=== PATIENT | female | born 2000 | race Caucasian/White ===

== ENCOUNTER 2022-05-04 16:55 | Emergency (ER) | payer MEDICAID, SELFPAY ==
[2022-05-04 17:01] VITALS: BP 119/79; PULSE 102; RESP 18; TEMP 36.9; O2SAT 100
[2022-05-04 17:40] LABS: Abs Immature Grans 0.02 10^3/uL (0.0-0.06); Absolute Basophil Count 0.03 10^3/uL (0.0-0.2); Absolute Eosinophil Count 0.05 10^3/uL (0.0-0.7); Absolute Monocyte Count 0.56 10^3/uL (0.1-0.8); Absolute Neutrophil Count 5.17 10^3/uL (1.2-6.7); Basophils % 0.4; Eosinophils % 0.7; HCT 36.6 % (36.0-46.0); HGB 11.1 g/dL (11.2-15.7); Immature Grans % 0.3; Lymphocytes % 22.6; MCHC 30.3 % (32.0-36.0); MCV 79 fL (80-95); MPV 10.1 fL (8.0-11.0); Monocytes % 7.4; Neutrophils % 68.6; Platelet Count 279 10^3/uL (130-400); RBC 4.62 10^6/uL (3.93-5.22); RDW 15.8 % (11.7-14.6); RDW-SD 45.2 fL; WBC 7.53 10^3/uL (4.4-10.8)
--- NOTE | 2022-05-04 17:40 | ED.GENADUL_ITS ---
Discharge Plan Disposition Patient Disposition: Home Condition: Stable Discharge Details Clinical Impression: Threatened miscarriage in early Primary Care Provider: Unknown,Unknown ED Provider: Debra Jaime Discharge Instructions Instructions: Threatened Miscarriage (ED) Additional Instructions: Please return within the next 24 hours to have an ultrasound completed. You do need to have repeat blood test of an hCG redrawn in 24 to 48 hours. You are placed on the care management list to assist you in getting follow-up with METHODS ANA[facility]ST DATA PROCESSING women's wellness here at [facility]. Or you may make an appointment with the [employer]NA[employer] DATA [employer]ESS[employer] of your choice. Pelvic rest until cleared by [employer]. Your hCG level was 158, we were unable to find heart tones on the Doppler at bedside. Follow up with primary care provider in 3-5 days. Return to ED sooner if any worsening bleeding, soaking through more than 1 pad an hour, worsening abdominal pain, dizziness lightheadedness, or concerns. Increase oral fluids. Referrals: Eleanor Hartley DO [OSTEOPATHIC DOCTOR] - 3 days Medical Decision Making 22-year-old prima approximately 12 weeks reported presents with vaginal bleeding and bilateral lower abdominal cramping which began last night. She reports spotting began at her PCP appointment yesterday and then increased to like it light. Soaking through less than 1 pad an hour. She reports that she is soaking through 2 pantiliners an hour. She denies any dizziness lightheadedness. She has not had any care. She states that she has had 2 positive home tests and then confirmed by her PCP today. staff writer unable to get heart tones, I did come to the bedside with ultrasound machine I was unable to locate heart tones. CBC, BMP, hCG quant ordered. We will plan to do a pelvic exam. Patient denies any concern for STD denies any vaginal itching or discharge. hCG quant is 158, CBC shows some mild anemia however hemoglobin hematocrit are within normal limits, patient is O-. Pelvic exam performed patient tolerated well, witnessed by Masha FARAH there is bleeding with clots noted steady ooze from the cervical os. No lesions or purulent discharge noted. RhoGAM IM ordered. Will order an ultrasound for the a.m. I did recommend the patient get hCG quant redrawn in 2 to 3 days with her [employer] or PCP. They have not had an appointment for women wellness or [employer] yet. Patient placed on care management list for [employer] follow-up in 2 to 3 days. Patient is to have ultrasound here tomorrow and follow-up in the ER. This text was generated using [employer] system, please disregard any oddities of phrase or misspellings. Lab Data Lab results reviewed: Yes I reviewed the patient's lab results. Labs: Laboratory Tests Range/Units 05/04/22 05/04/22 05/04/22 17:25 17:25 17:25 WBC (4.4-10.8) 10^3/uL 7.53 RBC (3.93-5.22) 10^6/uL 4.62 Hgb (11.2-15.7) g/dL 11.1 L Hct (36.0-46.0) % 36.6 MCV (80-95) fL 79 L MCH (27.0-33.0) pg 24.0 L MCHC (32.0-36.0) % 30.3 L RDW (11.7-14.6) % 15.8 H Plt Count (130-400) 10^3/uL 279 MPV (8.0-11.0) fL 10.1 Immature Gran % 0.3 Neutrophils % 68.6 Lymphocytes % 22.6 Monocytes % 7.4 Eosinophils % 0.7 Basophils % 0.4 Nucleated RBC % (0.0-0.3) % 0.0 Absolute Neutrophils (1.2-6.7) 10^3/uL 5.17 Absolute Lymphocytes (1.2-3.4) 10^3/uL 1.70 Absolute Monocytes (0.1-0.8) 10^3/uL 0.56 Absolute Eosinophils (0.0-0.7) 10^3/uL 0.05 Absolute Basophils (0.0-0.2) 10^3/uL 0.03 Sodium (136-145) mmol/L 139 Potassium (3.5-5.1) mmol/L 3.6 Chloride (98-107) mmol/L 103 Carbon Dioxide (21.0-32.0) mmol/L 27.8 Anion Gap (3-11) mmol/L 8.2 BUN (7-18) mg/dL 10 Creatinine (0.55-1.02) mg/dL 0.7 Est GFR (CKD-EPI 2020) (mL/min/1.73m2) 126.90 Glucose (74-106) mg/dL 95 Calcium (8.5-10.1) mg/dL 9.3 Beta HCG, Quant (1-3) mIU/mL 158 H Patient ABO/Rh O Negative Antibody Screen NEGATIVE Rhogam Unit Number [id number] Unit Expiration Date 11/11/2023 Product Lot # [id number] HPI General Mode of arrival: ambulatory . Date/Time Provider Initiated Documentation: 05/04/22 16:56 . Limitations to Documentation: no limitations . Information obtained by: patient, family, RN notes reviewed and old records reviewed . HPI Narrative: 22-year-old female presents to the ER chief complaint of vaginal bleeding. Patient reports she was seen by her PCP yesterday and had a confirmation of . She reports being approximately 12 weeks . She reports being giving spotting yesterday and has been going through less than 1 pad an hour reports soaking through a panty liner in 2 hours. She has some bilateral lower suprapubic cramping which she describes as like a period. This is her first . She reports stopping her ADHD medication 2 months ago when she suspected she was . Related Data Allergies Allergy/AdvReac Type Severity Reaction Status Date / Time No Known Allergies Allergy Unverified 05/04/22 17:05 General Stated Complaint: [employer] CHANDANA: 3 Review of Systems All systems reviewed & are unremarkable except as noted in HPI and below Genitourinary Genitourinary: Reports as per HPI, Denies difficulty voiding, Denies dysuria and Reports other (Vaginal bleeding) PFSH All Active Problems (Updated 05/04/22 @ 19:40 by Debra Jaime NP) Threatened miscarriage in early (Acute) Social History Smoking/Tobacco Use Status: Current every day Tobacco Type: e-cigarettes Smoking risk assessment performed?: Yes Alcohol Intake: never Substance use type: does not use Do you feel safe at home: Yes Do you feel safe in your relationship?: Yes Exam Narrative Exam Narrative: Constitutional: Alert and oriented x3. Appears stated age. Normal body habitus. Head: Normocephalic, no trauma. Eyes: Pupils PERRL, Red reflex noted, EOM's intact. Eyelids symmetrical without lesions, discharge, or swelling. Chest: RRR, Normal S1, S2, distal pulses intact. Resp: Lungs clear to auscultation bilaterally, no wheezes, rales, or rhonchi. Abdomen: Soft, non-distended, Normoactive bowel sounds all 4 quads. Musculoskeletal: Normal gait, 5/5 strength to all four extremities. Skin: No suspicious rashes or lesions. Capillary refill less than 2 sec. Neurologic: Cranial nerves II-XII intact. Alert and oriented x 3. Hematologic/Lymphatic: No ecchymosis, no lymphadenopathy. External Female Exam: normal external appearance Speculum Exam - Vagina: vaginal bleeding Speculum Exam - Cervix: cervical os open (Slightly with slow ooze noted), normal vervical discharge, no lesions and no masses OB/External & Speculum: cervical os open (Slightly with slow ooze noted) and vaginal bleeding Course Vital Signs Vital signs: Vital Signs Temperature 36.9 C 05/04/22 17:01 Pulse 102 H 05/04/22 17:01 Respiratory Rate 18 05/04/22 17:01 Blood Pressure 119/79 05/04/22 17:01 Pulse Oximetry 100 05/04/22 17:01 Temperature 36.9 C 05/04/22 17:01 Temperature Source Temporal Artery Scan 05/04/22 17:01 Pulse 102 H 05/04/22 17:01 Respiratory Rate 18 05/04/22 17:01 Respiratory Effort Non-Labored 05/04/22 17:03 Blood Pressure 119/79 05/04/22 17:01 Pulse Oximetry 100 05/04/22 17:01 Oxygen Delivery Method Room Air 05/04/22 17:01 Oxygen Flow Rate 0 05/04/22 17:01
[2022-05-04 18:02] LABS: Anion Gap 8.2 mmol/L (3-11); BUN 10 mg/dL (7-18); CO2 27.8 mmol/L (21.0-32.0); CREATININE 0.7 mg/dL (0.55-1.02); Calcium 9.3 mg/dL (8.5-10.1); Chloride 103 mmol/L (98-107); Glucose 95 mg/dL (74-106); HCG Quant, Pregnancy 158 mIU/mL (1-3); Potassium 3.6 mmol/L (3.5-5.1); Sodium 139 mmol/L (136-145)
--- NOTE | 2022-05-04 19:52 | NUR.NOTE ---
faxed over requistion to [facility] ans Patient referral sent to care management aline
== END 2022-05-04 20:15 | disposition home or self-care (01) ==
PROVIDERS: Emergency Provider Registered Nurse Emergency
DX: O20.0 Threatened abortion (principal); Z3A.12 12 weeks gestation of pregnancy
CPT/HCPCS: 36415; 80048; 86850; 86900; 86901; 90384; 96372; 99284; 84702; 85025; J2790

== ENCOUNTER 2022-05-05 19:14 | Emergency (ER) | payer MEDICAID, SELFPAY ==
[2022-05-05] VITALS (8 sets, daily range): BP systolic 102–117; BP diastolic 60–84; PULSE 89–102; RESP 16; TEMP 35.4; O2SAT 97–100
--- NOTE | 2022-05-05 19:20 | ED.GENADUL_ITS ---
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 Patient was seen here yesterday, had blood type O- and was given RhoGAM, had beta-hCG that was 158, work-up otherwise nondiagnostic and there was plan for outpatient ultrasound which unfortunately was not performed today. Abdominal exam tonight is benign. She is mildly tachycardic. Concern for threatened versus incomplete AB versus ectopic . I will recheck beta-hCG. I will give IV fluid bolus and Compazine. -- [id number] transabdominal and transvaginal ultrasound was performed by me with female press technician nurse present. Uterus was identified and no double decidual sign, no yolk sac, no IUP. No free fluid. I called and spoke with on-call lozenge dough mixer, Dr. Gonsales, discussed ED presentation and course, she feels ectopic unlikely but does agree with recheck beta-hCG and plan for close outpatient follow-up. Care signed out to Dr. Cadena plan to follow-up on hCG, reassess patient after IV fluid. HPI General Mode of arrival: ambulatory . Date/Time Provider Initiated Documentation: 05/05/22 19:20 . Limitations to Documentation: no limitations . Information obtained by: patient . HPI Narrative: 22-year-old female at G1, P0 at questionable gestational age, here with chief complaint of abdominal cramping. Patient notes lower abdominal cramping for the past 2 days. Worse today. She has associated vaginal bleeding, 1 pad every few hours. She has passed a few clots but no tissue. Patient was seen here in the emergency department yesterday for abdominal cramping and vaginal bleeding. Patient had beta hCG that was low at 158. Blood type was O- and she did receive RhoGAM. Work-up was otherwise nondiagnostic and she was discharged with plan for outpatient ultrasound today. Unfortunately she could not arrange for transportation for ultrasound today. She does have an ultrasound scheduled for tomorrow. Tonight she has associated nausea and vomiting. Related Data Home Medications Medication Instructions Recorded Confirmed Unknown [No Known Home Meds] 05/05/22 05/05/22 Allergies Allergy/AdvReac Type Severity Reaction Status Date / Time No Known Allergies Allergy Unverified 05/05/22 19:22 General CHANDANA: 3 Review of Systems All systems reviewed & are unremarkable except as noted in HPI and below Constitutional Constitutional: Denies fever(s) Gastrointestinal Gastrointestinal: Reports nausea and Reports vomiting Genitourinary Genitourinary: Reports as per HPI PFSH All Active Problems Threatened miscarriage in early (Acute) Social History Smoking/Tobacco Use Status: Former Tobacco Use Smoking risk assessment performed?: Yes Alcohol Intake: never Substance use type: does not use Do you feel safe at home: Yes Do you feel safe in your relationship?: Yes Exam Const General: cooperative HENMT Head: normocephalic Eyes Conjunctivae: normal conjunctivae Sclera: normal sclerae Neck Neck: trachea midline Resp Auscultation: clear to auscultation bilaterally, no rales, no rhonchi and no w heezes Cardio Rate: tachycardic Rhythm: regular rhythm GI Palpation: soft, not firm, no guarding, no masses, not rigid and nontender Skin General skin exam: pallor Neuro General: patient alert, patient awake and tone normal Extrem General: no edema Psych Appearance: grossly normal Mental Status: mental status grossly normal
[2022-05-05] MEDS: Prochlorperazine 10 MG/2 ML VIAL IVP (19:56)
[2022-05-05] MEDS: Lactated Ringers 500 ML IV (19:56)
[2022-05-05 20:08] LABS: Abs Immature Grans 0.03 10^3/uL (0.0-0.06); Absolute Basophil Count 0.02 10^3/uL (0.0-0.2); Absolute Eosinophil Count 0.05 10^3/uL (0.0-0.7); Absolute Lymphocyte Count 1.38 10^3/uL (1.2-3.4); Absolute Monocyte Count 0.48 10^3/uL (0.1-0.8); Absolute Neutrophil Count 6.38 10^3/uL (1.2-6.7); Basophils % 0.2; Eosinophils % 0.6; HCT 35.8 % (36.0-46.0); HGB 10.9 g/dL (11.2-15.7); Immature Grans % 0.4; Lymphocytes % 16.5; MCH 24.1 pg (27.0-33.0); MCHC 30.4 % (32.0-36.0); MCV 79 fL (80-95); MPV 10.5 fL (8.0-11.0); Monocytes % 5.8; Neutrophils % 76.5; Platelet Count 266 10^3/uL (130-400); RBC 4.52 10^6/uL (3.93-5.22); RDW 15.9 % (11.7-14.6); RDW-SD 45.2 fL; WBC 8.34 10^3/uL (4.4-10.8)
[2022-05-05 20:45] LABS: ALT 22 U/L (14-59); AST 24 U/L (15-37); Albumin 3.8 g/dL (3.4-5.0); Alkaline Phosphatase 86 U/L (46-116); Anion Gap 9.4 mmol/L (3-11); BUN 8 mg/dL (7-18); Bilirubin, Total 0.3 mg/dL (0.2-1.0); CO2 24.6 mmol/L (21.0-32.0); CREATININE 0.7 mg/dL (0.55-1.02); Calcium 9.1 mg/dL (8.5-10.1); Chloride 108 mmol/L (98-107); Glucose 99 mg/dL (74-106); Potassium 3.6 mmol/L (3.5-5.1); Sodium 142 mmol/L (136-145)
[2022-05-05 21:02] LABS: HCG Quant, Pregnancy 109 mIU/mL (1-3)
--- NOTE | 2022-05-05 22:08 | NUR.NOTE ---
Nursing Note: Report given to Bo FARAH
--- NOTE | 2022-05-05 22:10 | ED.PROG_ITS ---
Date of service: 05/05/22 Time of Service: 22:15 Medical Decision Making Patient was signed out to me by my colleague Dr. Shabbir Henriquez. Please refer to his HPI, physical exam, assessment and plan. At time of signout we are awaiting repeat hCG level and reassessment. On reassessment patient is feeling much bet ter. Pain resolved. She is tolerating p.o. well. Heart rate normalized. No signs of shock. Hemoglobin relatively stable. hCG is demonstrating a decline, hCG is now 109. Symptoms appear consistent with miscarriage and less likely ectopic . She is scheduled for outpatient ultrasound tomorrow. The case has been reviewed with obstetrics, and Dr. Martinez recommends close follow-up. Patient feels well and is stable for discharge. Symptoms inconsistent with an acute surgical abdomen, or ruptured ectopic. I have extensively reviewed the treatment plan and discharge instructions with the patient and their family. I have addressed all patient concerns at this time. The patient and family was made aware of what symptoms to monitor for that would warrant a return to the emergency department. Discussed the plan with the patient and family, they demonstrate verbal understanding and agreement with our assessment and plan at this time. The documentation in this chart was dictated using [employer] dictation software. Please excuse any dictation errors. Sign Out Sign Out Data: Sign Out Comment: followup hcg, reassess patient post ivf, consider discharge with close outpatient followup. Last updated by Shabbir Henriquez MD at 05/05/22 20:21 Discharge Plan Disposition Patient Disposition: Home Condition: Improving Discharge Details Clinical Impression: Incomplete miscarriage Primary Care Provider: Unknown,Unknown ED Provider: Nba Cadena Home Meds and New Rx's Prescriptions: No Action No Known Home Meds Discharge Instructions Instructions: Miscarriage (ED) Additional Instructions: At this time your beta-hCG levels are decreasing, which points more strongly to a miscarriage. However it is still vitally important that you follow-up closely tomorrow for your ultrasound and OB appointments. Please drink plenty of fluid. Take Tylenol and Motrin as needed for pain. If you notice any worsening of your symptoms, or any new symptoms such as vomiting, diarrhea, fever, chills, shortness of breath, chest pain, numbness, weakness, or fainting , please return immediately to the emergency department for reevaluation. Please follow up with your primary care provider as soon as possible for reassessment and reevaluation. As always, it was a pleasure participating in your medical care today. Referrals: Saumya Brannon MD [ [facility] STAFF PHYSICIAN] -
--- NOTE | 2022-05-05 22:31 | NUR.NOTE ---
Nursing Note: Pt out of ER ambulatory with discharge papers.
== END 2022-05-05 22:38 | disposition home or self-care (01) ==
PROVIDERS: Student in an Organized Health Care Education/Training Program; Emergency Provider Student in an Organized Health Care Education/Training Program
DX: O03.4 Incomplete spontaneous abortion without complication (principal)
CPT/HCPCS: 36415; 80053; 96361; 96374; 99284; 84702; 85025; J0780

== ENCOUNTER 2022-05-11 02:44 | Outpatient (CLI) | payer MEDICAID, SELFPAY ==
--- NOTE | 2022-05-11 | DI.US_ITS ---
Exam(s) US OB 1ST TRIMESTER EXAM: US OB 1ST TRIMESTER CLINICAL HISTORY: VAGINAL BLEEDING, FIRST TRIMESTER, F/U IN ED. TECHNIQUE: Transabdominal and transvaginal pelvic ultrasound was performed using standard protocol. COMPARISON: No exams were available for comparison FINDINGS: UTERUS: Position: Anteverted. Size: 6 long by 3.1 AP by 4.4 transverse cm Endometrium: 0.1 cm. Normal for patient's menstrual status. No intrauterine gestation sac is identifi ed. Myometrium: Unremarkable. Cervix: Unremarkable. OVARIES: No suspicious adnexal masses are seen sonographically. Right: 3.5 x 1.8 x 3.1 cm Cyst or mass: No suspicious cystic or solid masses. Left: 2.9 x 1.8 x 2.8 cm Cyst or mass: No suspicious cystic or solid masses. DOPPLER: Color: Symmetric and uniform flow to both ovaries. CUL-DE-SAC: Free fluid: There is a small amount of free fluid in the pelvis. Other: None. IMPRESSION: 1. Normal-appearing uterus with endometrial stripe within normal limits. 2. Unremarkable bilateral ovaries. 3. No evidence of an intrauterine gestational sac or adnexal mass. 4. Findings were discussed with the emergency department at 1:10 p.m. on 05/11/2022. DATA REPOSITORY:
== END 2022-05-11 03:04 ==
LOC: DI 02:44
PROVIDERS: Visit Provider Registered Nurse Emergency
DX: O20.9 Hemorrhage in early pregnancy, unspecified (principal)
CPT/HCPCS: 76801

== ENCOUNTER 2022-05-11 13:07 | Emergency (ER) | payer MEDICAID, SELFPAY ==
[2022-05-11 13:15] VITALS: BP 113/63; PULSE 86; RESP 16; TEMP 36.3; O2SAT 99
--- NOTE | 2022-05-11 13:24 | ED.GENADUL_ITS ---
Discharge Plan Disposition Patient Disposition: Home Condition: Stable Discharge Details Chief Complaint: Recheck Clinical Impression: Miscarriage Primary Care Provider: Unknown,Unknown ED Provider: Shade Truong Home Meds and New Rx's Prescriptions: No Action No Known Home Meds Discharge Instructions Instructions: Miscarriage (ED) Additional Instructions: follow up with your primary care provider as needed if you have severe abdominal pain or fevers return to the emergency department Medical Decision Making 22 yo female who comes in for ultrasoud results. She was seen last week for vaginal bleeding and was approximately 12 weeks . She states she has not had any more bleeding and has no abdominal pain or cramping, feels well. Her u/s shows no evidence of so suspect she had a complete miscarriage. Given lack of symptoms do not feel other testing indicated, she will follow up with her provider as needed Differential Diagnosis Differential Diagnosis: miscarriage HPI General Mode of arrival: ambulatory . Date/Time Provider Initiated Documentation: 05/11/22 13:08 . Limitations to Documentation: no limitations . Information obtained by: patient . History of Present Illness 22 year old F presents to the emergency department with the chief complaint of here for ultrasound results, Patient started experiencing this day(s) (6) and it has been constant. No relieving factors improve symptom(s), No exacerbating fac tors reported . Patient notes no other symptoms.. Patient did receive the following treatments prior to arrival, none Related Data Home Medications Medication Instructions Recorded Confirmed Unknown [No Known Home Meds] 05/05/22 05/05/22 Allergies Allergy/AdvReac Type Severity Reaction Status Date / Time No Known Allergies Allergy Unverified 05/05/22 19:22 General Stated Complaint: Recheck CHANDANA: 4 Review of Systems All systems reviewed & are unremarkable except as noted in HPI and below Constitutional Constitutional: Denies chills, Denies fever(s) and Denies weakness Cardiovascular Cardiovascular: Denies chest pain and Denies dyspnea Respiratory Respiratory: Denies cough and Denies dyspnea Gastrointestinal Gastrointestinal: Denies abdominal pain, Denies nausea and Denies vomiting Genitourinary Genitourinary: Denies dysuria Musculoskeletal Musculoskeletal: Denies joint swelling Integumentary/Breasts Skin/Breast: Denies rash Neurologic Neurologic: Denies weakness [facility] All Active Problems (Updated 05/11/22 @ 13:27 by Shade Truong MD) Threatened miscarriage in early (Acute) Incomplete miscarriage (Acute) Miscarriage (Acute) Social History Smoking/Tobacco Use Status: Former Tobacco Use Smoking risk assessment performed?: Yes Alcohol Intake: never Drug use: Never Substance use type: does not use Do you feel safe at home: Yes Do you feel safe in your relationship?: Yes Exam Const General: no acute distress Orientation: alert HENMT Head: normal to inspection Ears: external ears normal General nose exam: external nose normal Mouth: moist mucous membranes Eyes General: appearance normal, both eyes and all related structures Neck Neck: normal visual inspection Resp Effort & Inspection: normal respiratory effort and able to speak in complete sentences Cardio Rate: regular rate GI Palpation: soft and nontender Skin General skin exam: no rashes or lesions noted Neuro General: patient alert and patient oriented x3 Extrem General: normal to inspection Psych Mental Status: mental status grossly normal Course Vital Signs Vital signs: Vital Signs Temperature 36.3 C L 05/11/22 13:15 Pulse 86 05/11/22 13:15 Respiratory Rate 16 05/11/22 13:15 Blood Pressure 113/63 05/11/22 13:15 Pulse Oximetry 99 05/11/22 13:15 Temperature 36.3 C L 05/11/22 13:15 Temperature Source Tympanic 05/11/22 13:15 Pulse 86 05/11/22 13:15 Respiratory Rate 16 05/11/22 13:15 Respiratory Effort 05/11/22 13:16 Blood Pressure 113/63 05/11/22 13:15 Blood Pressure Position Sitting 05/11/22 13:15 Pulse Oximetry 99 05/11/22 13:15 Oxygen Delivery Method Room Air 05/11/22 13:15 Oxygen Flow Rate 0 05/11/22 13:15 Pain Level 0 05/11/22 13:15
== END 2022-05-11 13:30 | disposition home or self-care (01) ==
PROVIDERS: Emergency Provider Emergency Medicine
DX: O03.9 Complete or unspecified spontaneous abortion without complication (principal)

== ENCOUNTER 2022-07-19 20:51 | Emergency (ER) | payer MEDICAID, SELFPAY ==
[2022-07-19 20:57] VITALS: BP 113/72; PULSE 99; RESP 17; TEMP 36.8; O2SAT 99
--- NOTE | 2022-07-19 21:12 | ED.GENADUL_ITS ---
Discharge Plan Disposition Patient Disposition: Home Discharge Details Clinical Impression: Arthralgia of ankle Primary Care Provider: Unknown,Unknown ED Provider: Debra Jaime Home Meds and New Rx's Prescriptions: No Action No Known Home Meds Discharge Instructions Instructions: Leg Pain (ED) Additional Instructions: Please try diclofenac cream which she can get [id number] the other name for this is Voltaren cream. Please take Tylenol or Ibuprofen with food every 4- 6 hours as needed for pain and swelling. Rest ice compression elevation Follow up with primary care provider in 3-5 days. Return to ED sooner if any worsening or concerns. Increase oral fluids. You are placed on a care management list to help you establish primary care provider Stand Alone Forms: Work Release Discharge Data Discharge Date/Time-TO BE ENTERED AT DEPARTURE: 07/19/22 21:27 HPI General Mode of arrival: ambulatory . Date/Time Provider Initiated Documentation: 07/19/22 20:51 . Limitations to Documentation: no limitations . Information obtained by: patient, RN notes reviewed and old records reviewed . HPI Narrative: 22-year-old female presents to the ER with chief complaint of bilateral ankle pain which has been ongoing for weeks. She reports she does have a history of tendinitis. No new injuries noted no swelling. She has been taking Tylenol prior to going to sleep. No signs of infection erythema or swelling. No other associated symptoms or complaints. Denies any other joint pain or swelling. Related Data Home Medications Medication Instructions Recorded Confirmed Unknown [No Known Home Meds] 05/05/22 05/05/22 Allergies Allergy/AdvReac Type Severity Reaction Status Date / Time No Known Allergies Allergy Unverified 05/05/22 19:22 General Stated Complaint: Orthopedic CHANDANA: 4 Review of Systems All systems reviewed & are unremarkable except as noted in HPI and below Musculoskeletal Musculoskeletal: Reports as per HPI and Reports arthralgias PFSH All Active Problems (Updated 07/19/22 @ 21:15 by Debra Jaime NP) Arthralgia of ankle (Acute) Social History Smoking/Tobacco Use Status: Former Tobacco Use Smoking risk assessment performed?: Yes Alcohol Intake: never Drug use: Never Substance use type: does not use Do you feel safe at home: Yes Do you feel safe in your relationship?: Yes Exam Narrative Exam Narrative: Constitutional: Alert and oriented x3. Appears stated age. Normal body habitus. Head: Normocephalic, no trauma. Eyes: Pupils PERRL, Red reflex noted, EOM's intact. Eyelids symmetrical without lesions, discharge, or swelling. ENT: Bilateral TM's WNL, External ear normal to inspection, no mastoid TTP, swelling, or erythema, Nasal turbinates WNL, no nasal discharge. Normal dentition, Posterior pharynx WNL, no exudate. Chest: RRR, Normal S1, S2, distal pulses intact. Resp: Lungs clear to auscultation bilaterally, no wheezes, rales, or rhonchi. Abdomen: Soft, non-distended, Normoactive bowel sounds all 4 quads. Musculoskeletal: Normal gait, 5/5 strength to all four extremities. Skin: No suspicious rashes or lesions. Capillary refill less than 2 sec. Neurologic: Cranial nerves II-XII intact. Alert and oriented x 3. Motor: No deficits noted. Sensory: Intact bilaterally all 4 extremities. Reflexes: DTR's intact bilaterally.. Hematologic/Lymphatic: No ecchymosis, no lymphadenopathy. Extrem Right lower extremity: normal to inspection, full ROM and ankle Details: normal to inspection, tenderness and no edema Left lower extremity: normal to inspection, full ROM and ankle Details: normal to inspection, tenderness and no edema Course Vital Signs Vital signs: Vital Signs Temperature 36.8 C 07/19/22 20:57 Pulse 99 H 07/19/22 20:57 Respiratory Rate 17 07/19/22 20:57 Blood Pressure 113/72 07/19/22 20:57 Pulse Oximetry 99 07/19/22 20:57 Temperature 36.8 C 07/19/22 20:57 Temperature Source Temporal Artery Scan 07/19/22 20:57 Pulse 99 H 07/19/22 20:57 Respiratory Rate 17 07/19/22 20:57 Respiratory Effort Normal 07/19/22 21:00 Blood Pressure 113/72 07/19/22 20:57 Blood Pressure Position Sitting 07/19/22 20:57 Pulse Oximetry 99 07/19/22 20:57 Oxygen Delivery Method Room Air 07/19/22 20:57 Oxygen Flow Rate 0 07/19/22 20:57 Pain Level 3 07/19/22 20:57 Comment Patient states pain in bilateral ankles when ambulating is sharp, stabbing, and like someone is trying to cut them off. 07/19/22 20:57
--- NOTE | 2022-07-19 21:32 | NUR.NOTE ---
Referral to Care Management to establish pcp routinely.Nursing Note:
== END 2022-07-19 21:27 | disposition home or self-care (01) ==
PROVIDERS: Emergency Provider Registered Nurse Emergency
DX: M25.571 Pain in right ankle and joints of right foot (principal); M25.572 Pain in left ankle and joints of left foot
CPT/HCPCS: 99281; 99282

== ENCOUNTER 2022-10-10 11:06 | Emergency (ER) | payer MEDICAID, SELFPAY ==
[2022-10-10 11:07] VITALS: BP 122/70; PULSE 118; RESP 16; TEMP 36.7; O2SAT 98
--- NOTE | 2022-10-10 11:15 | DI.US_ITS ---
Exam(s) US TRANSVAGINAL EXAM: US TRANSVAGINAL CLINICAL HISTORY: V,, belly pain, 8 wks TECHNIQUE: Ultrasound of the pelvis was performed both transabdominal and transvaginal. COMPARISON: US US OB 1ST TRIMESTER from 05/11/2022 FINDINGS: UTERUS: There is an intrauterine gestational sac which contains a 3-4 mm diameter yolk sac and a viab le pole with heart rate recorded at 113 BPM. [place]-rump length measures 8 mm, correspond to 6 weeks and 5 days gestational age. There are no uterine fibroids.No evidence of obvious subchronic hemorrhage. RIGHT OVARY: Measures 3 x 1.7 x 2.0 cm No significant cysts nor masses evident in the right ovary. LEFT OVARY: Measures 3 x 2.5 x 2.4 cm Contains a cyst measuring 2 x 1.7 x 1.8 cm, possibly corpus luteal. CUL-DE-SAC: Small amount of free fluid in the right adnexa is the region of the radial ovary. IMPRESSION: 1. Single viable intrauterine gestation which is approximately 6 weeks and 5 days gestational age by crown-rump length measurement. 2. There is a 2 cm cyst in the left ovary, probably corpus luteal. 3. Small amount of free fluid noted in the right adnexal region. DATA REPOSITORY:
[2022-10-10] MEDS: Normal Saline 1,000 ML 1000 ML IV (11:45)
[2022-10-10] MEDS: Ondansetron 4 MG/2 ML VIAL 8 MG IVP (11:45)
[2022-10-10 11:55] LABS: HCT 37.5 % (36.0-46.0); MCV 81 fL (80-95); MPV 9.7 fL (8.0-11.0); Platelet Count 257 10^3/uL (130-400); RBC 4.61 10^6/uL (3.93-5.22); RDW 14.2 % (11.7-14.6); RDW-SD 41.8 fL; WBC 12.01 10^3/uL (4.4-10.8)
[2022-10-10 12:10] LABS: ALT 19 U/L (14-59); AST 19 U/L (15-37); Albumin 4.5 g/dL (3.4-5.0); Alkaline Phosphatase 92 U/L (46-116); BUN 6 mg/dL (7-18); Bilirubin, Total 0.6 mg/dL (0.2-1.0); CREATININE 0.6 mg/dL (0.55-1.02); Calcium 9.4 mg/dL (8.5-10.1); Chloride 100 mmol/L (98-107); Glucose 85 mg/dL (74-106); Lipase 15 U/L (16-77); Potassium 3.7 mmol/L (3.5-5.1); Sodium 137 mmol/L (136-145); Total Protein 8.4 g/dL (6.4-8.2)
--- NOTE | 2022-10-10 12:25 | ED.GENADUL_ITS ---
Discharge Plan Disposition Patient Disposition: Home Discharge Details Clinical Impression: Vomiting, Primary Care Provider: None,None ED Provider: Sasha August Home Meds and New Rx's Prescriptions: No Action No Known Home Meds Discharge Instructions Instructions: (ED), Acute Nausea and Vomiting (ED) Additional Instructions: Zofran every 8 hours under tongue as needed for nausea and vomiting. Keep your appointment with DIRECTOR OF ENTERPRISE ARCHITECTURE this week. Let them know that you had an ultrasound in the emergency department today. This showed an intrauterine with heart rate of 113. There was a left corpus luteum cyst as well as a small amount of free fluid. Follow-up with economic connections and community connections as instructed for assistance with housing. Take a multivitamin a day. Medical Decision Making Care management came down to see the patient but she was already hooked up with services. Patient is supposed to see OB this week and get an ultrasound. She said she does not think she needs to go now. I told her that she did need to get established with DIRECTOR OF ENTER[employer] ARCHIT[employer] in spite of the fact that she had had an ultrasound in the ER today. She is completely nontoxic while in the department playing on her iPhone and drinking her sports beverage. DC from the department. Medical Records Medical records reviewed: Yes I reviewed the patient's medical records. Imaging Data Radiologic Study: Imaging: Ultrasound Radiologist's impression: Case discussed with radiologist who told me that the patient has an intrauterine with a heart rate of 113 as well as a corpus luteal cyst and small amount of free fluid. Lab Data Lab results reviewed: Yes I reviewed the patient's lab results. Lab results narrative: Blood cell count is 12,000 and the rest of the labs are pretty unremarkable. HPI General Date/Time Provider Initiated Documentation: 10/10/22 11:16 . HPI Narrative: This 22-year-old female patient presents with a chief complaint of nausea and vomiting. The patient is 2 para 1 at about 8 weeks gestation. She did have a miscarriage in May. She is homeless and sleeping in a tent with her boyfriend and dog. She has had no nausea or vomiting with either of the pregnancies. She did not feel well last night and this morning vomited a couple of times. Since then she has been able to take sports drinks without difficulty. She does tell me she still nauseous in the ED. She says her belly is a little bit sore from the vomiting. She also has a sunburn on her back and was concerned about sun poisoning. I reassured her regarding this. Had no vaginal bleeding or discharge. There is no fever, chills, localized belly pain, diarrhea, or dysuria. There is no radiating pain. The vomiting was mild. Related Data Home Medications Medication Instructions Recorded Confirmed Unknown [No Known Home Meds] 05/05/22 10/10/22 Allergies Allergy/AdvReac Type Severity Reaction Status Date / Time No Known Allergies Allergy Unverified 05/05/22 19:22 General Stated Complaint: Nausea/Vomit/Diar CHANDANA: 3 Review of Systems Constitutional Constitutional: Denies chills, Denies fever(s), Denies headache(s) and Denies weakness Eyes Eyes: Denies diplopia and Reports other (no redness) ENT Ears, Nose, Mouth, and Throat: Denies otalgia, Denies headache(s), Denies nasal congestion, Denies nasal discharge, Denies neck pain and Denies sore throat Cardiovascular Cardiovascular: Denies chest pain, Denies palpitations and Denies dyspnea Respiratory Respiratory: Denies cough and Denies dyspnea Gastrointestinal Gastrointestinal: Reports abdominal pain (Vague soreness), Denies diarrhea, Reports nausea and Reports vomiting Genitourinary Genitourinary: Denies dysuria Musculoskeletal Musculoskeletal: Denies myalgias, Denies muscle weakness, Denies neck pain, Denies numbness and Reports other (edema) Integumentary/Breasts Skin/Breast: Denies change in pigmentation, Denies rash and Reports other (Has lower back redness from the sun) Neurologic Neurologic: Denies headache(s), Denies numbness and Denies weakness Endocrine Endocrine: Denies palpitations PFSH All Active Problems Vomiting (Acute) (Acute) Social History Smoking/Tobacco Use Status: Current-Occasional Tobacco Type: e-cigarettes Smoking risk assessment performed?: Yes Alcohol Intake: never Drug use: Never Substance use type: does not use Housing: homeless Do you feel safe at home: Yes Do you feel safe in your relationship?: Yes Exam Const General: no acute distress, well developed, well groomed and not in acute distress Nutritional Appearance: well nourished Orientation: alert and oriented x3 HENAR Head: normocephalic and atraumatic Ears: external ears normal Mouth: oropharynx normal and moist mucous membranes Throat: posterior oropharynx normal Eyes Conjunctivae: conjunctivae normal Neck Neck: full ROM and supple Chest Chest: normal inspection of the chest Resp Effort & Inspection: normal respiratory effort Auscultation: clear to auscultation bilaterally Cardio Rate: regular rate Rhythm: regular rhythm Heart Sounds: no murmurs and no rubs GI Inspection: normal to inspection Palpation: soft, nontender and other (non distended) Auscultation: normal bowel sounds Skin General skin exam: no rashes or lesions noted and other (pink, warm, dry; first- degree sunburn lower back) Neuro General: patient alert, patient awake and patient oriented x3 Speech: speech normal Motor: other (KEYES) Sensory Exam: no sensory deficits noted Extrem General: normal to inspection, full ROM and pedal edema present Psych Mental Status: mental status grossly normal Speech and Movement: speech and movement normal Affect: normal affect Course Vital Signs Vital signs: Vital Signs Temperature 36.7 C 10/10/22 11:07 Pulse 118 H 10/10/22 11:07 Respiratory Rate 16 10/10/22 11:07 Blood Pressure 122/70 10/10/22 11:07 Pulse Oximetry 98 10/10/22 11:07 Temperature 36.7 C 10/10/22 11:07 Temperature Source Skin 10/10/22 11:07 Pulse 118 H 10/10/22 11:07 Respiratory Rate 16 10/10/22 11:07 Respiratory Effort Normal 10/10/22 11:52 Blood Pressure 122/70 10/10/22 11:07 Blood Pressure Position Sitting 10/10/22 11:07 Pulse Oximetry 98 10/10/22 11:07 Oxygen Delivery Method Room Air 10/10/22 11:07 Oxygen Flow Rate 0 10/10/22 11:07 Pain Level 4 10/10/22 11:07 Lab/Test Results Lab/Test Results: Laboratory Tests Range/Units 10/10/22 10/10/22 10/10/22 11:45 11:45 11:45 WBC (4.4-10.8) 10^3/uL 12.01 H RBC (3.93-5.22) 10^6/uL 4.61 Hgb (11.2-15.7) g/dL 12.0 Hct (36.0-46.0) % 37.5 MCV (80-95) fL 81 MCH (27.0-33.0) pg 26.0 L MCHC (32.0-36.0) % 32.0 RDW (11.7-14.6) % 14.2 Plt Count (130-400) 10^3/uL 257 MPV (8.0-11.0) fL 9.7 Sodium (136-145) mmol/L 137 Potassium (3.5-5.1) mmol/L 3.7 Chloride (98-107) mmol/L 100 Carbon Dioxide (21.0-32.0) mmol/L 23.0 Anion Gap (3-11) mmol/L 14.0 H BUN (7-18) mg/dL 6 L Creatinine (0.55-1.02) mg/dL 0.6 Est GFR (CKD-EPI 2020) (mL/min/1.73m2) 131.70 Glucose (74-106) mg/dL 85 Calcium (8.5-10.1) mg/dL 9.4 Total Bilirubin (0.2-1.0) mg/dL 0.6 AST (15-37) U/L 19 ALT (14-59) U/L 19 Alkaline Phosphatase (46-116) U/L 92 Total Protein (6.4-8.2) g/dL 8.4 H Albumin (3.4-5.0) g/dL 4.5 Lipase (16-77) U/L 15 L Cancelled
[2022-10-10 14:14] VITALS: BP 119/59; PULSE 91; RESP 15; TEMP 36.8; O2SAT 100
--- NOTE | 2022-10-10 14:48 | CMPROGNOTE_ITS ---
Date of service: 10/10/22 Time of Service: 14:48 Care Management Progress Note Progress Note Text Progress Note Text: CM asked by ED provider to meet with Dannielle. She is 2 months and living in a tent with her boyfriend. Dannielle shared that she has only been living in the tent for about a week. Prior to that they had an apartment in [facility] that they shared with a roommate. She stated they were not getting along with the roommate so they left. It is unclear whose apartment it actually was. Dannielle nor her boyfriend are currently employed and have no income. Dannielle informed CM that she has been trying to reach [employer] regarding housing. CM explained that this time of year, post Covid, housing in a motel is generally no longer an option. There are a few exceptions and Dannielle wanted to see if early was a condition that might qualify her. CM suggested that she present in person rather than via phone as there is often a long wait time on the phone. CM also provided Dannielle with a brochure for [employer] and encouraged her to contact them regarding other resources such as food and transportation.
== END 2022-10-10 14:22 | disposition home or self-care (01) ==
PROVIDERS: Emergency Provider Emergency Medicine
DX: O21.0 Mild hyperemesis gravidarum (principal); O34.81 Maternal care for other abnormalities of pelvic organs, first trimester; N83.12 Corpus luteum cyst of left ovary; Z59.00 Homelessness unspecified
CPT/HCPCS: 36415; 80053; 81025; 83690; 85027; 96360; 96374; 99284; 76830; J2405; J3490

== ENCOUNTER 2022-11-16 15:32 | Outpatient (REF) | payer MEDICAID, SELFPAY ==
[2022-11-16 18:47] LABS: *AMPHETAMINES SCREEN URINE Negative (Negative); *BARBITURATES SCREEN URINE Negative (Negative); *BENZODIAZEPINES SCREEN URINE Negative (Negative); Cannabinoids THC Negative (Negative); Cocaine Screen,Urine Positive (Negative); METHADONE URINE SCREEN Negative (Negative); OPIATES URINE SCREEN Negative (Negative); Tricyclic Antidepressants Negative (Negative)
[2022-11-18 14:02] LABS: Chlamydia Result Negative (Negative); GC Result Negative (Negative)
[2022-11-24 11:47] LABS: Buprenorphine Negative ng/mL (Cutoff: 5.0); Norbuprenorphine Negative ng/mL (Cutoff: 2.5)
== END 2022-11-16 15:33 | disposition home or self-care (01) ==
LOC: LBN 15:32
PROVIDERS: Visit Provider Advanced Practice Midwife
DX: O26.891 Other specified pregnancy related conditions, first trimester (principal); N89.8 Other specified noninflammatory disorders of vagina; Z11.3 Encounter for screening for infections with a predominantly sexual mode of transmission; Z3A.11 11 weeks gestation of pregnancy
CPT/HCPCS: 80307; 80348; 87491; 87591; 87086; 87480; 87510; 87660

== ENCOUNTER 2022-11-16 16:21 | Outpatient (CLI) | payer MEDICAID, SELFPAY ==
[2022-11-16 17:33] LABS: TSH (W/Ref FT4) 1.03 uIU/mL (0.36-3.74)
[2022-11-16 22:16] LABS: Panorama Kit Sent via Fed Ex
[2022-11-17 09:24] LABS: Rubella IgG Ab (UVM) Positive (See Note); Varicella IgG Antibody Positive (See Note)
[2022-11-17 09:42] LABS: Hepatitis C Ab w Rflx HCV PCR Negative (Negative)
[2022-11-17 10:06] LABS: HIV-1/2 Ag & Ab Screen Negative (Negative)
[2022-11-17 14:19] LABS: Hepatitis B Surface Ag Negative (Negative)
[2022-11-18 15:38] LABS: Syphilis IgG w/Reflex Nonreactive (Nonreactive)
[2022-11-26 00:51] LABS: Result Summary NEGATIVE; Specimen WB Whole Blood
== END 2022-11-16 16:22 | disposition home or self-care (01) ==
LOC: LBO 16:21
PROVIDERS: Visit Provider Advanced Practice Midwife
DX: Z3A.11 11 weeks gestation of pregnancy; O26.891 Other specified pregnancy related conditions, first trimester; N89.8 Other specified noninflammatory disorders of vagina; Z36.89 Encounter for other specified antenatal screening
CPT/HCPCS: 36415; 81220; 81222; 86787; 86803; 86850; 86900; 86901; 87340; 87389; 84443; 86762; 86780

== ENCOUNTER 2022-12-21 16:47 | Outpatient (CLI) | payer MEDICAID, SELFPAY ==
[2022-12-26 12:16] LABS: AFP 48.5 ng/mL; GA used in risk estimate Scan estimate; IVF Pregnancy No; Initial or repeat testing Initial testing; Insulin dependent diabetes No; Maternal Weight 178 lbs; Number of Fetuses 1; Prev Pregnancy w/NTD No; RECOMMENDED FOLLOW UP None.; Results Summary Normal risk
== END 2022-12-21 16:48 | disposition home or self-care (01) ==
LOC: LBO 16:48
PROVIDERS: Visit Provider Obstetrics & Gynecology Gynecology
DX: Z34.92 Encounter for supervision of normal pregnancy, unspecified, second trimester (principal); Z3A.16 16 weeks gestation of pregnancy
CPT/HCPCS: 36415; 82105

== ENCOUNTER → 2023-01-16 01:57 | Outpatient (CLI) | payer MEDICAID, SELFPAY ==
--- NOTE | 2023-01-16 08:15 | DI.US_ITS ---
Exam(s) US OB 2-3 TRIMESTER EXAM: US OB 2-3 TRIMESTER CLINICAL HISTORY: ,z34.90. TECHNIQUE: Transabdominal obstetrical ultrasound performed. COMPARISON: US US OB 1ST TRIMESTER from 05/11/2022 FINDINGS: Number of fetuses: 1 position: Cephalic. heart rate: 152bpm Placental location: There is a grade 1 posterior placenta. The placental tip is 3.9 cm from the inte rnal os. No evidence of previa. Amniotic fluid index: Amount of fluid is within normal limits. ANATOMICAL SURVEY: Within normal limits. BIOMETRIC DATA: BPD: 5.02cm, 21weeks 1day HC: 18.09cm, 20weeks 4days AC: 15.29cm, 20weeks 3days FL: 3.37cm, 20weeks 4days Cisterna magna: 4.4mm Cerebellum: 2.26cm Lat ventricle: 5.4 mm. EFW: 361.39g, 0.81lb, 52.2% Composite Age: 20weeks 5days LESLIE: 05/31/2023 Heart Rate: 152bpm ANATOMICAL SURVEY: Four-chambered heart: Unremarkable. RVOT: Unremarkable. LVOT: Unremarkable. Left-sided stomach: Unremarkable. urinary bladder: Unremarkable. Bilateral kidneys: Unremarkable. Three-vessel cord: Unremarkable. Cord insertion: Unremarkable. Posterior fossa: Unremarkable. ventricles: Unremarkable. nose/lips: Unremarkable. Palate: Unremarkable. spine: Unremarkable. Two arms and two legs: Unremarkable. Diaphragm: Unremarkable. IMPRESSION: 1. Single live intrauterine gestation as above. 2. Normal anatomic survey. DATA REPOSITORY:
== END ==
PROVIDERS: Visit Provider Advanced Practice Midwife
DX: Z34.92 Encounter for supervision of normal pregnancy, unspecified, second trimester (principal)
CPT/HCPCS: 76805

== ENCOUNTER 2023-01-16 14:11 | Outpatient (REF) | payer MEDICAID, SELFPAY ==
[2023-01-16 18:24] LABS: *AMPHETAMINES SCREEN URINE Negative (Negative); *BARBITURATES SCREEN URINE Negative (Negative); *BENZODIAZEPINES SCREEN URINE Negative (Negative); Cannabinoids THC Negative (Negative); Cocaine Screen,Urine Negative (Negative); METHADONE URINE SCREEN Negative (Negative); OPIATES URINE SCREEN Negative (Negative)
[2023-01-16 18:25] LABS: Tricyclic Antidepressants Negative (Negative)
[2023-02-01 13:05] LABS: Buprenorphine Negative ng/mL (Cutoff: 5.0); Norbuprenorphine Negative ng/mL (Cutoff: 2.5)
== END 2023-01-16 14:12 | disposition home or self-care (01) ==
LOC: LBN 14:11
PROVIDERS: Visit Provider Advanced Practice Midwife
DX: R82.5 Elevated urine levels of drugs, medicaments and biological substances (principal); Z34.92 Encounter for supervision of normal pregnancy, unspecified, second trimester
CPT/HCPCS: 80307; 80348

== ENCOUNTER 2023-03-15 04:19 | Outpatient (CLI) | payer MEDICAID, SELFPAY ==
[2023-03-15 12:07] LABS: HGB 9.2 g/dL (11.2-15.7); MCH 27.1 pg (27.0-33.0); MCHC 31.7 % (32.0-36.0); MCV 86 fL (80-95); MPV 9.9 fL (8.0-11.0); Platelet Count 218 10^3/uL (130-400); RBC 3.39 10^6/uL (3.93-5.22); RDW 14.2 % (11.7-14.6); RDW-SD 44.2 fL; WBC 8.99 10^3/uL (4.4-10.8)
[2023-03-15 12:08] LABS: Glucose,1 Hr (Glucola) 136 mg/dL (80-140)
== END 2023-03-15 04:20 | disposition home or self-care (01) ==
LOC: LBO 04:20
PROVIDERS: Visit Provider Advanced Practice Midwife
DX: Z34.93 Encounter for supervision of normal pregnancy, unspecified, third trimester (principal)
CPT/HCPCS: 36415; 82950; 85027; 86850; 90384

== ENCOUNTER 2023-03-15 13:14 | Outpatient (REF) | payer MEDICAID, SELFPAY ==
[2023-03-15 14:09] LABS: *AMPHETAMINES SCREEN URINE Negative (Negative); *BARBITURATES SCREEN URINE Negative (Negative); *BENZODIAZEPINES SCREEN URINE Negative (Negative); Cannabinoids THC Negative (Negative); Cocaine Screen,Urine Negative (Negative); METHADONE URINE SCREEN Negative (Negative); OPIATES URINE SCREEN Negative (Negative)
[2023-03-15 14:10] LABS: Tricyclic Antidepressants Negative (Negative)
== END 2023-03-15 13:15 | disposition home or self-care (01) ==
LOC: LBN 13:14
PROVIDERS: Visit Provider Advanced Practice Midwife
DX: Z34.93 Encounter for supervision of normal pregnancy, unspecified, third trimester (principal)
CPT/HCPCS: 80307

== ENCOUNTER 2023-03-23 02:49 | Outpatient (CLI) | payer MEDICAID, SELFPAY ==
[2023-03-23 11:25] LABS: Glucose 1 Hour 169 mg/dL
[2023-03-23 13:43] LABS: Glucose 3 Hour 107 mg/dL
== END 2023-03-23 02:50 | disposition home or self-care (01) ==
LOC: LBO 02:49
PROVIDERS: Visit Provider Advanced Practice Midwife
DX: R73.09 Other abnormal glucose (principal)
CPT/HCPCS: 36415; 82951

== ENCOUNTER 2023-04-10 12:06 | Emergency (ER) | payer MEDICAID, SELFPAY ==
[2023-04-10 12:34] VITALS: BP 124/66; PULSE 129; RESP 18; TEMP 37; O2SAT 100
[2023-04-10 13:15] VITALS: RESP 18
--- NOTE | 2023-04-10 13:15 | RT.EKG_ITS ---
APPROVED REPORT Exam: Resting ECG Reason for Exam: dizzy Patient Location: E HR:115 bpm ECG Measurements Heart Rate 115 AXIS VA 126 P 57 QRSd 76 QRS 33 QT 319 T -3 QTc 441 Conclusion Sinus tachycardia...rate> 99
[2023-04-10 14:03] LABS: Abs Immature Grans 0.22 10^3/uL (0.0-0.06); Absolute Basophil Count 0.04 10^3/uL (0.0-0.2); Absolute Eosinophil Count 0.05 10^3/uL (0.0-0.7); Absolute Lymphocyte Count 1.47 10^3/uL (1.2-3.4); Absolute Monocyte Count 0.73 10^3/uL (0.1-0.8); Absolute Neutrophil Count 11.07 10^3/uL (1.2-6.7); Basophils % 0.3; Eosinophils % 0.4; HCT 28.5 % (36.0-46.0); Immature Grans % 1.6; Lymphocytes % 10.8; MCH 26.1 pg (27.0-33.0); MCHC 31.6 % (32.0-36.0); MCV 83 fL (80-95); MPV 9.6 fL (8.0-11.0); Monocytes % 5.4; Neutrophils % 81.5; Platelet Count 244 10^3/uL (130-400); RBC 3.45 10^6/uL (3.93-5.22); RDW 14.7 % (11.7-14.6); RDW-SD 43.8 fL; WBC 13.58 10^3/uL (4.4-10.8)
[2023-04-10 14:19] LABS: ALT 11 U/L (14-59); AST 8 U/L (15-37); Alkaline Phosphatase 121 U/L (46-116); BUN 6 mg/dL (7-18); Bilirubin, Total 0.2 mg/dL (0.2-1.0); CREATININE 0.5 mg/dL (0.55-1.02); Calcium 9.1 mg/dL (8.5-10.1); Chloride 103 mmol/L (98-107); Estimated GFR 136.76 (mL/min/1.73m2); Glucose 102 mg/dL (74-106); Magnesium 1.8 mg/dL (1.8-2.4); Potassium 3.6 mmol/L (3.5-5.1); Sodium 135 mmol/L (136-145); Total Protein 7.4 g/dL (6.4-8.2)
[2023-04-10 14:31] LABS: Iron 27 ug/dL (50-170)
--- NOTE | 2023-04-10 15:12 | ED.GENADUL_ITS ---
HPI General Mode of arrival: ambulatory . Date/Time Provider Initiated Documentation: 04/10/23 12:19 . Limitations to Documentation: no limitations . Information obtained by: patient . HPI Narrative: 23-year-old female at 32 weeks gestation, here after experiencing dizzy episode while shopping. She is concerned that she has been able to eat or drink appropriately recently. Patient denies chest pain. No abdominal pain. No vaginal bleeding. Related Data Home Medications Medication Instructions Recorded Confirmed vits no.126-ferrous fum 1 tab PO DAILY #90 tabs 11/16/22 04/19/23 28 mg iron-folic acid 800 mcg tablet (Classic ) ferrous sulfate 325 mg (65 mg 325 mg PO DAILY #60 tabs 03/15/23 04/19/23 iron) tablet,delayed release ferrous sulfate 324 mg (65 mg 324 mg PO BID #60 tabs 03/29/23 04/11/23 iron) tablet,delayed release Previous Rx's Medication Instructions Recorded vits no.126-ferrous fum 1 tab PO DAILY #90 tabs 11/16/22 28 mg iron-folic acid 800 mcg tablet (Classic ) ferrous sulfate 325 mg (65 mg 325 mg PO DAILY #60 tabs 03/15/23 iron) tablet,delayed release ferrous sulfate 324 mg (65 mg 324 mg PO BID #60 tabs 03/29/23 iron) tablet,delayed release Allergies Allergy/AdvReac Type Severity Reaction Status Date / Time No Known Allergies Allergy Unverified 04/19/23 12:47 General Stated Complaint: Dizzy/Sync CHANDANA: 3 Review of Systems Constitutional Constitutional: Denies fever(s) Gastrointestinal Gastrointestinal: Denies abdominal pain Exam Const General: cooperative and no acute distress HENNE Mouth: moist mucous membranes Eyes Conjunctivae: normal conjunctivae Sclera: normal sclerae Neck Neck: trachea midline and supple Resp Auscultation: clear to auscultation bilaterally, no rales, no rhonchi and no wheezes Cardio Rate: regular rate and not tachycardic Rhythm: regular rhythm GI Inspection: other (Gravid abdomen) Palpation: soft, not firm, no guarding, no masses, not rigid and nontender Skin General skin exam: no rashes or lesions noted Neuro General: patient alert, patient awake and tone normal Extrem General: no edema Psych Appearance: grossly normal Mental Status: mental status grossly normal Course Vital Signs Vital signs: Vital Signs Temperature 37.0 C 04/10/23 12:34 Pulse 129 H 04/10/23 12:34 Respiratory Rate 18 04/10/23 12:34 Blood Pressure 124/66 04/10/23 12:34 Pulse Oximetry 100 04/10/23 12:34 Temperature 37.0 C 04/10/23 12:34 Temperature Source Skin 04/10/23 12:34 Pulse 129 H 04/10/23 12:34 Respiratory Rate 18 04/10/23 13:15 Respiratory Effort Short of Breath 04/10/23 13:15 Respiratory Depth Normal 04/10/23 13:15 Blood Pressure 124/66 04/10/23 12:34 Blood Pressure Position Sitting 04/10/23 12:34 Pulse Oximetry 100 04/10/23 12:34 Oxygen Delivery Method Room Air 04/10/23 12:34 Oxygen Flow Rate 0 04/10/23 12:34 Pain Level 4 04/10/23 12:34 Lab/Test Results Lab/Test Results: Laboratory Tests Range/Units 04/10/23 13:59 WBC (4.4-10.8) 10^3/uL 13.58 H RBC (3.93-5.22) 10^6/uL 3.45 L Hgb (11.2-15.7) g/dL 9.0 L Hct (36.0-46.0) % 28.5 L MCV (80-95) fL 83 MCH (27.0-33.0) pg 26.1 L MCHC (32.0-36.0) % 31.6 L RDW (11.7-14.6) % 14.7 H Plt Count (130-400) 10^3/uL 244 MPV (8.0-11.0) fL 9.6 Immature Gran % 1.6 Neutrophils % 81.5 Lymphocytes % 10.8 Monocytes % 5.4 Eosinophils % 0.4 Basophils % 0.3 Nucleated RBC % (0.0-0.3) % 0.0 Absolute Neutrophils (1.2-6.7) 10^3/uL 11.07 H Absolute Lymphocytes (1.2-3.4) 10^3/uL 1.47 Absolute Monocytes (0.1-0.8) 10^3/uL 0.73 Absolute Eosinophils (0.0-0.7) 10^3/uL 0.05 Absolute Basophils (0.0-0.2) 10^3/uL 0.04 Sodium (136-145) mmol/L 135 L Potassium (3.5-5.1) mmol/L 3.6 Chloride (98-107) mmol/L 103 Carbon Dioxide (21.0-32.0) mmol/L 26.0 Anion Gap (3-11) mmol/L 6.0 BUN (7-18) mg/dL 6 L Creatinine (0.55-1.02) mg/dL 0.5 L Est GFR (CKD-EPI 2020) (mL/min/1.73m2) 136.76 Glucose (74-106) mg/dL 102 Calcium (8.5-10.1) mg/dL 9.1 Magnesium (1.8-2.4) mg/dL 1.8 Iron (50-170) ug/dL 27 L Total Bilirubin (0.2-1.0) mg/dL 0.2 AST (15-37) U/L 8 L ALT (14-59) U/L 11 L Alkaline Phosphatase (46-116) U/L 121 H Total Protein (6.4-8.2) g/dL 7.4 Albumin (3.4-5.0) g/dL 3.0 L Medical Decision Making 43-year-old female at 32 weeks gestation, history of anemia, here after dizzy spell. Patient is now hemodynamically stable. Neurologically intact. Screening labs were reviewed and chronic anemia noted with no significant change. No significant electrolyte abnormalities. EKG was reviewed and interpreted by me: Please report, sinus tachycardia 115 bpm. heart rate within normal limits. Plan to continue iron supplementation for anemia. Plan for close outpatient follow-up with her obstetrics team. Usual customary discharge instructions reviewed with the patient. Quality:SDOH Health Related Social Needs: No Data to Display PFSH All Active Problems (Updated 04/19/23 @ 13:03 by Meghana Moore CNM) Breech presentation (Acute) Anemia (Chronic) Dizziness (Acute) Anemia affecting first (Acute) Elevated glucose level (Acute) Housing instability after recent homelessness (Acute) see CM notes ADHD (Acute) Rh negative state in antepartum period (Acute) (Acute) Medical History (Updated 04/19/23 @ 13:03 by Meghana Moore CNM) Positive urine drug screen cocaine on UDS at initial OB Depression Family History (Updated 11/16/22 @ 14:07 by Meghana Moore CNM) Mother Substance use disorder alcoholism Hypertension Father Substance use disorder alcohol Maternal Grandfather Diabetes Maternal Grandmother Thyroid disease Social History (Updated 11/29/22 @ 09:47 by Meghana Moore CNM) Smoking/Tobacco Use Status: Current-Occasional Tobacco Type: e-cigarettes Smoking risk assessment performed?: Yes Alcohol Intake: never Substance use type: crack/cocaine Details: pos. UDS for cocaine at 11 weeks gestation Housing: homeless Sexually active: Yes Do you think of yourself as: straight/heterosexual Current gender identity: female Do you feel safe at home: Yes Do you feel safe in your relationship?: Yes History History 2 Para 0 Hx # Term Pregnancies 0 Multiple births 0 Hx # Pregnancies 0 Ectopic pregnancies 0 AB induced 0 Hx Number of Living Children 0 AB spontaneous 1 Past Pregnancies Del. Date GA/Weeks # Preg Succ Route Wgt Sex Labor Lgth Anesth esia Location Prov Complic Unknown 12 No No Discharge Plan Disposition Patient Disposition: Home Condition: Stable Discharge Details Clinical Impression: Dizziness, Anemia ED Provider: Shabbir Henriquez Home Meds and New Rx's Prescriptions: Continued Classic 28 mg iron- 800 mcg tablet 1 tab PO DAILY Qty: 90 4RF ferrous sulfate 325 mg (65 mg iron) tablet,delayed release (DR/EC) 325 mg PO DAILY Qty: 60 5RF ferrous sulfate 324 mg (65 mg iron) tablet,delayed release (DR/EC) 324 mg PO BID Qty: 60 2RF Discharge Instructions Instructions: Dizziness (ED), Anemia (ED) Additional Instructions: Please follow-up with your button tufter/project development engineer tomorrow as scheduled. Rest at home. No exertional activities. Return to the ER immediately for any worsening or new concerning symptoms. Referrals: [facility] [Provider Group] Discharge Data Discharge Date/Time-TO BE ENTERED AT DEPARTURE: 04/10/23 15:33
[2023-04-10 15:27] VITALS: BP 120/82; PULSE 95; RESP 18; O2SAT 99
== END 2023-04-10 15:33 | disposition home or self-care (01) ==
PROVIDERS: Emergency Provider Student in an Organized Health Care Education/Training Program
DX: O99.013 Anemia complicating pregnancy, third trimester; R42 Dizziness and giddiness; R73.09 Other abnormal glucose
CPT/HCPCS: 36416; 80053; 82962; 93005; 99283; 83540; 83735; 85025; 93010

== ENCOUNTER → 2023-05-03 02:07 | Outpatient (CLI) | payer MEDICAID, SELFPAY ==
--- NOTE | 2023-05-03 08:30 | DI.US_ITS ---
Exam(s) US OB ISRRAEL WEIGHT EXAM: US OB ISRRAEL WEIGHT CLINICAL HISTORY: confirm presentation,BREECH,o32.1xx0. TECHNIQUE: Transabdominal obstetrical ultrasound performed. COMPARISON: US US OB 2-3 TRIMESTER from 01/16/2023 FINDINGS: Number of fetuses: 1 position: Graham breech. The spine is anterior. Placental location: There is a grade 2 fundal placenta. No evidence of previa. BIOMETRIC DATA: BPD: 8.62cm, 34weeks 5days HC: 33.84cm, 38weeks 6days AC: 32.25cm, 36weeks 1day FL: 6.72cm, 34weeks 4days EFW: 2,791.86g, 6lb 3.38oz, 54.6% Composite Age: 36weeks 1day LESLIE: 05/30/2023 Heart Rate: 154bpm Amniotic fluid index: 12.45cm. Visually, amount of fluid is within normal limits. IMPRESSION: 1. Single live intrauterine gestation as above. The fetus is in the graham breech position. 2. Estimated weight is 2792gms. This is the 55th percentile. 3. Amniotic fluid index is 12.5 cm. Visually within normal limits. DATA REPOSITORY:
== END ==
PROVIDERS: Visit Provider Advanced Practice Midwife
DX: O32.1XX0 Maternal care for breech presentation, not applicable or unspecified (principal); Z3A.35 35 weeks gestation of pregnancy
CPT/HCPCS: 76816

== ENCOUNTER 2023-05-03 03:19 | Outpatient (RCR) | payer MEDICAID, SELFPAY ==
[2023-04-12] MEDS: Normal Saline Flush 10 ML SYR IVP (12:32)
[2023-04-12] MEDS: IRON SUCROSE COMPLEX 200 MG in Normal Saline 100 ML 440 MG IVPB (12:32)
[2023-04-19 11:11] LABS: HGB 9.1 g/dL (11.2-15.7)
[2023-04-19] MEDS: IRON SUCROSE COMPLEX 200 MG in Normal Saline 100 ML 440 MG IVPB (11:33)
[2023-04-26 12:32] LABS: HGB 9.2 g/dL (11.2-15.7)
[2023-04-26] MEDS: IRON SUCROSE COMPLEX 200 MG in Normal Saline 100 ML 440 MG IVPB (12:53)
[2023-04-26] MEDS: Normal Saline Flush 10 ML SYR IVP (12:53)
== END 2023-05-03 23:59 | disposition home or self-care (01) ==
LOC: INF 03:19
PROVIDERS: Visit Provider Advanced Practice Midwife
DX: O99.013 Anemia complicating pregnancy, third trimester (principal)
CPT/HCPCS: 36415; 96365; 85018; J1756

== ENCOUNTER 2023-05-10 13:40 | Outpatient (REF) | payer MEDICAID, SELFPAY | END 2023-05-10 13:41 | disposition home or self-care (01) | LOC: LBN 13:40 | PROVIDERS: Visit Provider Obstetrics & Gynecology | DX: Z34.93 Encounter for supervision of normal pregnancy, unspecified, third trimester (principal); Z36.85 Encounter for antenatal screening for Streptococcus B; Z3A.36 36 weeks gestation of pregnancy | CPT/HCPCS: 87081 ==

== ENCOUNTER 2023-05-24 01:19 | Outpatient (RCR) | payer MEDICAID, SELFPAY ==
[2023-05-04] MEDS: IRON SUCROSE COMPLEX 200 MG in Normal Saline 100 ML 440 MG IVPB (13:35)
[2023-05-04] MEDS: Normal Saline Flush 10 ML SYR IVP (13:39)
[2023-05-10 11:29] LABS: HGB 9.7 g/dL (11.2-15.7)
[2023-05-10] MEDS: Normal Saline Flush 10 ML SYR IVP (12:09)
[2023-05-10] MEDS: IRON SUCROSE COMPLEX 200 MG in Normal Saline 100 ML 440 MG IVPB (12:09)
[2023-05-17 11:00] LABS: HGB 10.8 g/dL (11.2-15.7)
[2023-05-17] MEDS: IRON SUCROSE COMPLEX 200 MG in Normal Saline 100 ML 440 MG IVPB (11:19)
[2023-05-17] MEDS: Normal Saline Flush 10 ML SYR IVP (11:19)
[2023-05-24] MEDS: Normal Saline Flush 10 ML SYR IVP (13:45)
[2023-05-24 14:10] LABS: HGB 11.3 g/dL (11.2-15.7)
== END 2023-06-01 23:59 | disposition home or self-care (01) ==
LOC: INF 01:19
PROVIDERS: Visit Provider Advanced Practice Midwife
DX: O99.013 Anemia complicating pregnancy, third trimester (principal)
CPT/HCPCS: 36415; 96365; 96366; 85018; J1756

== ENCOUNTER 2023-05-29 04:05 | Outpatient (CLI) | payer MEDICAID, SELFPAY ==
[2023-05-29 12:56] LABS: Abs Immature Grans 0.23 10^3/uL (0.0-0.06); Absolute Basophil Count 0.04 10^3/uL (0.0-0.2); Absolute Eosinophil Count 0.06 10^3/uL (0.0-0.7); Absolute Lymphocyte Count 1.49 10^3/uL (1.2-3.4); Absolute Monocyte Count 0.59 10^3/uL (0.1-0.8); Absolute Neutrophil Count 7.79 10^3/uL (1.2-6.7); Basophils % 0.4; Eosinophils % 0.6; HCT 35.1 % (36.0-46.0); HGB 11.5 g/dL (11.2-15.7); Immature Grans % 2.3; Lymphocytes % 14.6; MCH 28.8 pg (27.0-33.0); MCHC 32.8 % (32.0-36.0); MCV 88 fL (80-95); Monocytes % 5.8; Neutrophils % 76.3; Platelet Count 228 10^3/uL (130-400); RDW 19.5 % (11.7-14.6); RDW-SD 62.4 fL
== END 2023-05-29 04:06 | disposition home or self-care (01) ==
LOC: LBO 04:05
PROVIDERS: Visit Provider Obstetrics & Gynecology
DX: Z01.818 Encounter for other preprocedural examination (principal)
CPT/HCPCS: 36415; 86850; 86900; 86901; 86920; 85025; 86870

== ENCOUNTER 2023-05-31 05:59 | Inpatient (IN) | payer MEDICAID, SELFPAY ==
[2023-05-31] VITALS (60 sets, daily range): BP systolic 89–131; BP diastolic 60–82; PULSE 53–104; RESP 15–18; TEMP 36.3–36.9; O2SAT 94–100; BMI 29.8
[2023-05-31] MEDS: AZITHROMYCIN 500 MG in Normal Saline 250 ML 250 MG IVPB (06:28)
--- NOTE | 2023-05-31 06:50 | NUR.NOTE ---
Nursing Note:Pt arrived to unit ambulatory, oriented to unit and unit routines. Pt is here for a scheduled primary C/S due to breech. Baseline FHR 135 via EFM .
--- NOTE | 2023-05-31 07:07 | ANES.PREOP_ITS ---
General Info Date of Service Date Performed: 05/31/23 Height: 5 ft 10 in Weight: 94.347 kg Body Mass Index (BMI): 29.8 Surgical Procedure: Operation Date: 05/31/23 07:40 Proposed Procedure Side Surgeon p Section Eleanor Hartley DO Meds Allergies and Home Medications Allergies Allergy/AdvReac Type Severity Reaction Status Date / Time No Known Allergies Allergy Unverified 05/29/23 11:15 Home Medication Medication Instructions Recorded vits no.126-ferrous fum 1 tab PO DAILY #90 tabs 11/16/22 28 mg iron-folic acid 800 mcg tablet (Classic ) ferrous sulfate 325 mg (65 mg 325 mg PO DAILY #60 tabs 03/15/23 iron) tablet,delayed release Current Visit Medications: Current Medications Generic Name Dose Route Start Last Admin Trade Name Freq PRN Reason Stop Dose Admin Citric Acid/Sodium Citrate 30 ml 05/31/23 07:00 Sodium Citrate 30 Ml Cup PO PREOP JENNIFER Ringer's Solution 1,000 mls @ 125 drops/hr 05/31/23 06:00 IV INFUSION JENNIFER Cefazolin Sodium/Dextrose 2 gm in 50 mls @ 100 mls/hr 05/31/23 06:15 Ancef Duplex IVPB PREOP JENNIFER Azithromycin 500 mg/ Sodium 250 mls @ 250 mls/hr 05/31/23 06:15 05/31/23 06:28 Chloride IVPB 250 mls/hr PREOP JENNIFER Administration Ringer's Solution 1,000 mls @ 200 mls/hr 05/31/23 06:15 IV INFUSION JENNIFER IV Miscellaneous Supplies 1 each 05/31/23 06:00 Iv Access IV DIRECTED JENNIFER IV Miscellaneous Supplies 1 each 05/31/23 06:15 Iv Access IV DIRECTED JENNIFER Sodium Chloride 0 ml 05/31/23 05:57 Normal Saline Flush 10 Ml Syr IVP PRN PRN Sodium Chloride 0 ml 05/31/23 08:30 Normal Saline Flush 10 Ml Syr IVP BID JENNIFER Sodium Chloride 0 ml 05/31/23 05:57 Normal Saline 10 Ml Vial IJ DIRECTED PRN Sodium Chloride 0 ml 05/31/23 06:07 Normal Saline Flush 10 Ml Syr IVP PRN PRN Sodium Chloride 0 ml 05/31/23 08:30 Normal Saline Flush 10 Ml Syr IVP BID JENNIFER Sodium Chloride 0 ml 05/31/23 06:07 Normal Saline 10 Ml Vial IJ DIRECTED PRN PFSH Active Problems Active Problems: Problem Status Onset Code Breech presentation O32.1XX0 Anemia affecting first O99.019 Elevated glucose level R73.09 Housing instability after recent homelessness Z59.812 ADHD F90.9 Rh negative state in antepartum period O26.899, Z67.91 Z34.90 Medical History Medical History (Updated 05/11/23 @ 00:06 by RIGOBERTO HOBBS) Positive urine drug screen cocaine on UDS at initial OB Depression Tobacco Smoking/Tobacco Use Status: Current-Occasional Tobacco Type: e-cigarettes Alcohol Alcohol Intake: never Substance Use Substance use type: crack/cocaine Details: pos. UDS for cocaine at 11 weeks gestation Prental History History 2 2 Para 0 Hx # Term Pregnancies 0 Multiple births 0 Hx # Pregnancies 0 Ectopic pregnancies 0 AB induced 0 Hx Number of Living Children 0 AB spontaneous 1 Past Pregnancies Del. Date GA/Weeks # Preg Succ Route Wgt Sex Labor Lgth Anesth esia Location Prov Complic Unknown 12 No No Vital Signs and Lab Results Vital Signs Most Recent Vital Signs in EMR: Most Recent Vital Signs Temp Pulse Resp BP Pulse Ox 36.9 C 86 18 107/70 99 05/31/23 06:34 05/31/23 07:06 05/31/23 06:34 05/31/23 07:06 05/31/23 06:34 Lab Results 05/31/23 05:59 Blood Type / Crossmatch: 2 Patient ABO/Rh O Negative 05/29/23 Antibody Screen POSITIVE 05/29/23 Crossmatch See Detail 05/29/23 Complete Blood Count: 2 White Blood Count 10.20 10^3/uL (4.4-10.8) 05/29/23 12:30 Red Blood Count 4.00 10^6/uL (3.93-5.22) 05/29/23 12:30 Hemoglobin 11.5 g/dL (11.2-15.7) 05/29/23 12:30 Hematocrit 35.1 % (36.0-46.0) L 05/29/23 12:30 Platelet Count 228 10^3/uL (130-400) 05/29/23 12:30 Complete Metabolic Panel: 2 No Data to Display Liver Function Panel: 2 No Data to Display Coagulation Panel: 2 No Data to Display Cardiac Panel: 2 No Data to Display Arterial Blood Gas: 2 No Data to Display Venous Blood Gas: 2 No Data to Display Pancreas Panel: 2 No Data to Display Thyroid Panel: 2 No Data to Display Infectious Disease: 2 No Data to Display Blood Cultures: 2 No Data to Display Toxicology Panel: 2 No Data to Display Panel: 2 No Data to Display Imaging and Studies Imaging and Studies Study information below may be from another EMR and interpreted by another provider. Please see original notes in EMR for more complete details. EKG Summary: 04/10/23Conclusion Sinus tachycardia...rate> 99 I have reviewed and I agree with the emergency room physician's ECG interpretation. Anesthesia Assessment and Plan Anesthesia History Personal History: No History of General Anesthesia Family History: No Family History of Anesthesia Complications Exercise Tolerance Exercise Tolerance: Metabolic Equivalents>4 Pertinent Negatives Pertinent Negatives: No Major Cardiovascular Symptoms or Complaints, No Major Pulmonary Symptoms or Complaints and No History of CVA/TIA Cardiac & Pulmonary Exam Cardiac Exam: Normal S1/S2 Heart Sounds Pulmonary Exam: Clear Bilateral Breath Sounds Implantable Cardiac Device Does patient have a Pacemaker or an ICD?: No Airway Exam Known Difficult Airway: No Mallampati Class: 2 Mouth Opening: Normal (> 3cm) Thyromental Distance: Less than 3 cm Neck Range of Motion: Full ROM Neck Circumference: Normal Teeth Condition: Normal Dentition ASA Classification ASA Score: ASA 2 Emergency Case?: No NPO Status NPO Status: NPO Clears >2 hours, Solids >8 hours Status Status: Confirmed Anesthesia Plan Resuscitation Status: Full Code Anesthesia Technique: Spinal Anesthesia Airway Planned: Natural Airway Monitors Used: Standard Monitors Preoperative Comments:: Pt reports reflux related to
--- NOTE | 2023-05-31 07:25 | W.PM.OBNL1 ---
Date of service: 05/31/23 Time of Service: 07:25 Informed Consent Informed Consent: Section Delivery Assessment and Plan Assessment and plan (1) : Status: Acute Assessment and plan: at 39-4/7 weeks gestation, breech presentation, will undergo primary low-transverse section in light of the fact the patient declined external cephalic version attempt. Risk benefits alternatives were discussed. All questions answered. (2) Rh negative state in antepartum period: Status: Acute (3) Breech presentation: Status: Acute Objective Temp Pulse Resp BP Pulse Ox 97.9 F 86 16 107/70 99 05/31/23 07:06 05/31/23 07:06 05/31/23 07:06 05/31/23 07:06 05/31/23 07:06 Laboratory Results WBC Cancelled 05/31/23 05:59 RBC Cancelled 05/31/23 05:59 Hgb Cancelled 05/31/23 05:59 Hct Cancelled 05/31/23 05:59 MCV Cancelled 05/31/23 05:59 MCH Cancelled 05/31/23 05:59 MCHC Cancelled 05/31/23 05:59 RDW Cancelled 05/31/23 05:59 Plt Count Cancelled 05/31/23 05:59 MPV Cancelled 05/31/23 05:59 Patient ABO/Rh Cancelled 05/31/23 05:59 Antibody Screen Cancelled 05/31/23 05:59 Subjective Interval history since last seen: Patient seen and examined this morning. Consent reviewed. Ultrasound at the bedside performed confirming breech presentation back down. Pneumatic compression stockings in place. IV antibiotics will be given for surgical site infection prophylaxis. All questions answered. Results Hemoglobin/Hematocrit: Hgb Cancelled 05/31/23 05:59 Hct Cancelled 05/31/23 05:59 Pocus Exam Limited OB Exam DATE OF EXAM:: 05/31/23 TIME OF EXAM:: 07:27 PROVIDER THAT PERFORMED THE STUDY: Eleanor Hartley IS THIS A REPEAT EXAM DURING THIS ENCOUNTER: No Type of Exam: Pelvic OB Trans Abdominal REASON FOR EXAM: other (Presentation) indication: Suspected breech, confirmed Exam Complete. DIFFERENTAL DIAGNOSES: Breech presentation, confirmed.
[2023-05-31] MEDS: Lactated Ringers 1,000 ML 200 ML IV (07:35)
[2023-05-31] MEDS: ceFAZolin 2 GM/50 ML BAG IVPB (07:58)
[2023-05-31] MEDS: Bupivacaine 0.25% Pres-Free 30 ML VIAL (08:05)
--- NOTE | 2023-05-31 08:12 | PLAC_PTH ---
PATIENT: Dannielle Blancas LOC: OBS U#:[id number] AGE/SX: 23/F ROOM: OBS.304 RE05/31/[address]: Eleanor Hartley DO : 2000 BED: A DIS: 06/03/2023 SPEC #: [id number] RECD: 05/31/23 12:44 STATUS: SOURadha REQ #: [id number] MELVIN: 05/31/23 08:[address]: Eleanor Hartley DEPT: Surgical Specimen RECD BY: Rosaline Hodgson ENTERED: 05/31/23 12:44 SP TYPE: PLAC OTHR DR: Unknown,Unknown Tissues: 1 - PLACENTA (3RD TRIMESTER) Procedures: GROSS AND MICRO LEVEL 5 Comments: [id number]
--- NOTE | 2023-05-31 08:48 | W.PM.OBCSECT ---
Date of service: 05/31/23 Time of Service: 08:49 Operative Note Operative Note Delivery Method: Scheduled DATE OF PROCEDURE: 05/31/23 PRE-OP DIAGNOSES: at 39-4/7, breech POST-OP DIAGNOSES: same PROCEDURE: Primary low-transverse section SURGEON: Eleanor Hartley Detective And Intelligence Analyst: Maria Del Carmen Helms Anesthesia: local and spinal Estimated blood loss (mL): 450 Pathology: other (Placenta for exam) Complications: None Patient was transported to: floor Patient's condition: stable Indications: Term , 39-4/7 weeks, breech, declines version attempt. Findings: Delivery of a viable female from the eileen breech presentation. Weight and Apgars per nursing. Normal-appearing tubes, ovaries, uterus. No uterine anomalies noted. Procedure Description: After full informed consent was obtained, patient was taken the operating suite with an IV running. She received Zithromax, and Ancef for surgical site infection prophylaxis. She had pneumatic compression stockings for DVT prophylaxis. Spinal anesthesia was administered, tested and found to be adequate and the patient was placed in the dorsal supine position with a leftward tilt. She had a vaginal preparation and Cowan catheter was inserted for continuous bladder drainage. Her abdomen was prepped and draped in the usual sterile fashion. Quarter percent Marcaine was infiltrated into the Pfannenstiel skin incision area. A Pfannenstiel skin incision was made and carried down to the underlying fascia. The fascia was incised in the midline and fascial incision extended laterally. The rectus muscles were identified, in the midline, and the peritoneum identified tented up and entered sharply. The peritoneal incision was then extended superiorly and inferiorly and the bladder blade was inserted. The vesicouterine peritoneum was identified tented up and the bladder flap was created. The bladder was pushed well below the uterine incision area. A low transverse uterine incision was made with a scalpel and extended bluntly laterally. There was artificial rupture of membranes for clear fluid. Fetus was noted to be in the breech presentation and feet grasped and gently elevated through the incision. Body followed with ease to the point that the scapula could be identified. The right arm was swept out of the uterus and followed by the left arm. The vertex was delivered atraumatically. There was no evidence of nuchal cord. A three-vessel cord was noted clamped x 2 and cut after the appropriate delayed cord clamping. Baby was then handed off to the pediatric team. At this point a cord blood sample was obtained. Placenta and remnant of cord will be sent for examination. The placenta was manually expressed from the uterus, uterus exteriorized and cleared of all clot and debris. The uterine incision was closed in a 2 layer closure with 0 Monocryl suture. First layer was running locked, second layer imbricating. The abdomen was then irrigated with copious amounts of normal saline. The uterine incision was inspected and found to be hemostatic. The uterus was returned to the abdomen and uterine incision again inspected and found to be hemostatic. At this point the fascial incision was closed using 0 Vicryl suture in a running fashion. Subcutaneous tissue irrigated with copious amounts of normal saline and the subcutaneous space closed with 3-0 Vicryl suture. Skin edge was reapproximated with 4-0 undyed Monocryl. Steri-Strips and sterile dressing were placed. Patient was taken back to the center in stable condition with a Cowan catheter draining clear yellow urine. Complications: None apparent EBL: 450 mL Findings: Delivery of viable female infant?eileen breech, normal-appearing tubes, ovaries, and uterus. No evidence of uterine abnormalities. Fluids: Crystalloid per anesthesia Pathology: Placenta for exam
--- NOTE | 2023-05-31 09:13 | W.ANESPOSTOP ---
Postoperative Evaluation Date, Time and Location Date Performed: 05/31/23 Time Performed: 09:05 Patient Location: Obstetrics Vital Signs Most Recent Imported Vital Signs: Temp Pulse Resp BP Pulse Ox 36.6 C 67 16 107/67 97 05/31/23 07:06 05/31/23 09:14 05/31/23 07:06 05/31/23 09:13 05/31/23 09:14 Pain Score Most Recent Pain Score: Most Recent Pain Score Pain Level 0 05/31/23 06:34 Assessment Mental Status: Awake (Alert & Oriented to Patient Baseline) Airway and Respiratory Function: Patent airway with normal (patient baseline) respiratory exam Cardiovascular Function: Hemodynamically Stable Hydration Status: Adequately Hydrated Nausea & Vomiting: No Nausea or Vomiting Pain: Pain is tolerable per patient Peripheral Nerve Block: Regional nerve block not resolved at time of post operative discharge
[2023-05-31] MEDS: Normal Saline Flush 10 ML SYR IVP ×2 (14:12→19:40)
[2023-05-31] MEDS: Ondansetron 4 MG/2 ML VIAL IVP (14:12)
[2023-05-31] MEDS: Ketorolac 30 MG/ML VIAL 15 MG IVP ×2 (14:12→19:39)
--- NOTE | 2023-05-31 17:10 | W.PM.OBPNV1 ---
Date of service: 05/31/23 Time of Service: 17:10 Assessment and Plan Assessment and plan (1) Status post primary low transverse section: Status: Acute Assessment and plan: Postop day 0. Doing well. environmental field services technician offered for assistance upon discharge. All questions answered. CBC in the morning. Maintain Cowan catheter for the night. Subjective Subjective Interval history: Patient seen and examined this evening. Overall doing well. Occasional intermittent episodes of nausea. Urine output is appropriate. Will give an IV fluid bolus to help with nausea and hydration. Vital signs are stable. Appropriate bonding. environmental field services technician offered. All questions answered. Exam Physical Exam Vital signs: Temp Pulse Resp BP Pulse Ox 97.5 F L 68 16 108/64 97 05/31/23 16:25 05/31/23 16:25 05/31/23 16:25 05/31/23 16:25 05/31/23 16:25 Results Hemoglobin/Hematocrit: Hgb Cancelled 05/31/23 05:59 Hct Cancelled 05/31/23 05:59
[2023-06-01] VITALS (7 sets, daily range): BP systolic 90–123; BP diastolic 60–78; PULSE 68–95; RESP 16; TEMP 36.2–36.8; O2SAT 93–99
[2023-06-01] MEDS: Ketorolac 30 MG/ML VIAL 15 MG IVP (03:12)
[2023-06-01] MEDS: Normal Saline Flush 10 ML SYR IVP (03:13)
[2023-06-01] MEDS: Acetaminophen 325 MG TAB 650 MG PO ×2 (06:23→10:35)
[2023-06-01 07:05] LABS: Absolute Basophil Count 0.04 10^3/uL (0.0-0.2); Absolute Eosinophil Count 0.05 10^3/uL (0.0-0.7); Absolute Lymphocyte Count 1.86 10^3/uL (1.2-3.4); Basophils % 0.2; Eosinophils % 0.3; HGB 10.7 g/dL (11.2-15.7); Immature Grans % 1.1; Lymphocytes % 10.3; MCH 29.1 pg (27.0-33.0); MCHC 32.4 % (32.0-36.0); MCV 90 fL (80-95); MPV 9.9 fL (8.0-11.0); Monocytes % 3.7; Neutrophils % 84.4; Platelet Count 231 10^3/uL (130-400); RBC 3.68 10^6/uL (3.93-5.22); RDW 19.5 % (11.7-14.6); WBC 18.05 10^3/uL (4.4-10.8)
[2023-06-01 07:07] LABS: Absolute Monocyte Count 0.67 10^3/uL (0.1-0.8); Absolute Neutrophil Count 15.23 10^3/uL (1.2-6.7)
--- NOTE | 2023-06-01 09:06 | W.PM.OBPNV1 ---
Date of service: 06/01/23 Time of Service: 09:06 Assessment and Plan Assessment and plan (1) Status post primary low transverse section: Status: Acute Assessment and plan: Postoperative day #1 status post primary low-transverse section due to breech. Stable hemoglobin. Cowan catheter out this morning. Increase activity and ambulation. Of services offered. All questions answered. Anticipate discharge home 06/02/2023 if stable. Subjective Subjective Interval history: Patient seen and examined this morning. Overall doing well. Slight increase in pain and discomfort as her spinal is worn off. She does have lower extremity edema. This was examined and we discussed the normal fluid shifts during the period. Pneumatic compression stockings in place. No signs of DVT. Bonding is going well. We did again discuss the fact that supportive services will be offered again today. She can expect a visit from Danielle Zabala a little bit later to assist in any of her ongoing needs. Exam Physical Exam Vital signs: Temp Pulse Resp BP Pulse Ox 98.1 F 95 H 16 90/66 L 97 06/01/23 06:29 06/01/23 08:00 06/01/23 06:29 06/01/23 08:00 06/01/23 06:29 Vital Signs Reviewed: Yes Constitutional Constitutional: no acute distress HEENT Exam HEENT Exam: Normal Respiratory Exam Respiratory Exam: Normal Cardiovascular Exam Cardiovascular Exam: Normal Abdominal Exam Abdomen: Tender Comments: Incision is dressed Fundal Exam Fundus: Below Umbilicus and Firm Extremities Exam Extremity Exam: Normal and Edema (1+ bilateral); negative Calf Tenderness Skin Exam Skin Exam: Normal Neurological Exam Neurological Exam: Normal Psychiatric Exam Psychiatric Exam: Normal Results Hemoglobin/Hematocrit: Hgb 10.7 g/dL (11.2-15.7) L 06/01/23 06:45 Hct 33.0 % (36.0-46.0) L 06/01/23 06:45 Abnormal Lab Findings: Abnormal Labs 06/01/23 06:45 WBC 18.05 H RBC 3.68 L Hgb 10.7 L Hct 33.0 L RDW 19.5 H Absolute Neutrophils 15.23 H
[2023-06-01] MEDS: Docusate Sodium 100 MG CAP PO (09:13)
[2023-06-01] MEDS: Ibuprofen 600 MG TAB PO ×2 (09:14→23:13)
[2023-06-01] MEDS: oxyCODONE 5 mg/Acetaminophen 325 mg TAB PO ×3 (09:14→23:14)
[2023-06-02] MEDS: Ibuprofen 600 MG TAB PO ×3 (05:59→18:16)
[2023-06-02] MEDS: oxyCODONE 5 mg/Acetaminophen 325 mg TAB PO ×3 (05:59→18:16)
[2023-06-02 07:00] VITALS: BP 110/64; PULSE 88; RESP 18; TEMP 36.6; O2SAT 100
[2023-06-02 11:21] VITALS: BP 113/59; PULSE 89; RESP 17; TEMP 36.4; O2SAT 100
[2023-06-02] MEDS: Docusate Sodium 100 MG CAP PO ×2 (11:53→18:16)
[2023-06-02 15:40] VITALS: BP 110/68; PULSE 87; RESP 16; TEMP 36.7; O2SAT 99
--- NOTE | 2023-06-02 18:33 | W.PM.OBPNV1 ---
Date of service: 06/02/23 Time of Service: 18:33 Assessment and Plan Assessment and plan (1) Status post primary low transverse section: Status: Acute Assessment and plan: POD#2 s/p PCS for breech presentation. Pt is doing well but needing assistance with breast-feeding. Will plan D/C home tomorrow. Plans to go home to live with her mom for a few days as she recovers but is uncertain where she will go after that because her boyfriend is not allowed at her mother's place. Subjective Subjective Interval history: Pt reports pain well managed on PO meds. Tolerating reg diet w/ou nausea anymore. +flatus but no BM yet. Minimal lochia. She is up and walking without assistance. Exam Physical Exam Vital signs: Temp Pulse Resp BP Pulse Ox 98.1 F 87 16 110/68 99 06/02/23 15:40 06/02/23 15:40 06/02/23 15:40 06/02/23 15:40 06/02/23 15:40 Vital Signs Reviewed: Yes Constitutional Constitutional: no acute distress and cooperative Detailed HEENT Exam Head: Present normocephalic and atraumatic Respiratory Exam Respiratory Exam: Normal Abdominal Exam Abdomen: Tender (mildly) Comments: Incision clean, dry, intact Fundal Exam Fundus: Below Umbilicus and Firm Extremities Exam Extremity Exam: Edema (trace) Detailed Neurological Exam Neurological: Present alert, oriented X3 and CN II-XII intact Results Hemoglobin/Hematocrit: Hgb 10.7 g/dL (11.2-15.7) L 06/01/23 06:45 Hct 33.0 % (36.0-46.0) L 06/01/23 06:45 Abnormal Lab Findings: Abnormal Labs 06/01/23 06:45 WBC 18.05 H RBC 3.68 L Hgb 10.7 L Hct 33.0 L RDW 19.5 H Absolute Neutrophils 15.23 H
[2023-06-03] MEDS: Ibuprofen 600 MG TAB PO ×2 (01:12→11:59)
[2023-06-03] MEDS: oxyCODONE 5 mg/Acetaminophen 325 mg TAB PO (01:12)
[2023-06-03 01:13] VITALS: BP 125/72; PULSE 77; RESP 17; TEMP 36.8; O2SAT 100
[2023-06-03 08:45] VITALS: BP 128/84; PULSE 84; RESP 16; TEMP 36.4; O2SAT 100
--- NOTE | 2023-06-03 09:48 | OBPPV_ITS ---
Date of service: 06/03/23 Time of Service: 09:51 Assessment and Plan Assessment and plan (1) Status post primary low transverse section: Status: Acute Assessment and plan: Postoperative day #4 status post primary low-transverse section for breech presentation. From a physical standpoint doing well. Anticipate discharge from the hospital today. Social issues are the greater concern with no long-term housing plan. In the short-term interval, she will be housed with her parents in [place]. Actively working with social work assistant on finding a more appropriate, long-term housing situation for the patient, and her daughter. (2) Housing instability after recent homelessness: Status: Inactive (3) Homelessness: Status: Acute Exam Physical Exam Vital signs: Temp Pulse Resp BP Pulse Ox 98.2 F 77 17 125/72 100 06/03/23 01:13 06/03/23 01:13 06/03/23 01:13 06/03/23 01:13 06/03/23 01:13 Vital Signs Reviewed: Yes Constitutional Constitutional: no acute distress HEENT Exam HEENT Exam: Normal Neck Exam Neck Exam: Normal Respiratory Exam Respiratory Exam: Normal Cardiovascular Exam Cardiovascular Exam: Normal Abdominal Exam Comments: Soft, nontender, dressing in place. Active bowel sounds. Fundal Exam Fundus: Below Umbilicus and Firm Extremities Exam Extremity Exam: Normal and Edema (Scant bilateral); negative Calf Tenderness Neurological Exam Neurological Exam: Normal Psychiatric Exam Psychiatric Exam: Normal Results Hemoglobin/Hematocrit: Hgb 10.7 g/dL (11.2-15.7) L 06/01/23 06:45 Hct 33.0 % (36.0-46.0) L 06/01/23 06:45 Abnormal Lab Findings: Abnormal Labs 06/01/23 06:45 WBC 18.05 H RBC 3.68 L Hgb 10.7 L Hct 33.0 L RDW 19.5 H Absolute Neutrophils 15.23 H
--- NOTE | 2023-06-03 09:52 | W.PM.OBDISCH ---
Date of service: 06/03/23 Time of Service: 09:53 DS: Diagnosis Discharge Diagnosis (1) Status post primary low transverse section: Status: Acute Asessment and Plan: Postoperative day #4 status post primary low-transverse section for breech. Prescriptions for ibuprofen and Colace sent to the pharmacy. business services analyst involvement currently due to housing situation. Supervisor [employer] and DFS aware both in the [facility], and [place]. (2) Housing instability after recent homelessness: Status: Inactive (3) Homelessness: Status: Acute Discharge Plan Disposition Patient Disposition: Home Condition: Improving Discharge Details Reason For Visit: Admit Date/Time: 05/31/23 05:59 Admit Provider: Eleanor Hartley Attending Provider: Eleanor Hartley Primary Care Provider: Mercedes,Unknown Hospital Course Hospital Course: Patient was admitted and underwent a primary low-transverse section at 39 weeks and 4 days due to breech presentation. She is discharged home postoperative day #4 ambulating, tolerating a regular diet and oral pain medication with stable vital signs. Issues during her course have been more housing and school social worker related than they have related to her surgical intervention. Pediatrics, school social worker, are all involved in her care. Housing her is her primary obstacle. She is being discharged to the care of her parents temporarily while longer-term housing is arranged. Department of family and children have been notified both in the [facility], and [place]. Home Meds and New Rx's Prescriptions: New ibuprofen 800 mg tablet 800 mg PO Q8H PRNQty: 60 1RF docusate sodium [Colace] 100 mg capsule 100 mg PO BID Qty: 30 0RF Continued Classic 28 mg iron- 800 mcg tablet 1 tab PO DAILY Qty: 90 4RF ferrous sulfate 325 mg (65 mg iron) tablet,delayed release (DR/EC) 325 mg PO DAILY Qty: 60 5RF Discharge Instructions Additional Instructions: Follow-up at [facility] as scheduled Stand Alone Forms: BC Instructions, BC Discharge Instruc Activity:: Pelvic rest Equipment/Supplies:: No Equipment Needed Diet:: As Tolerated Discharge Orders Discharge Orders: Discharge Order (Routine); Ordered 06/03/23 Ordered By: Eleanor Hartley OB:DS Summary Summary Episiotomy Description: None Laceration Description: None Laceration Extension: N/A Contraception Discussed Contraception Discussed: Yes, [place] Gender-Baby A: Female weight: 7 lb 14.104 oz Status at Discharge Functional status at discharge: independent ambulation Overall status at discharge: patient is progressing back to baseline Mental Status: mental status grossly normal Speech and Movement: speech and movement normal Mood: congruent mood Affect: normal affect Quality:SDOH Health Related Social Needs: No Data to Display Exam Physical Exam Vital signs: Temp Pulse Resp BP Pulse Ox 97.5 F L 84 16 128/84 100 06/03/23 08:45 06/03/23 08:45 06/03/23 08:45 06/03/23 08:45 06/03/23 08:45 PFSH All Active Problems (Updated 06/02/23 @ 18:35 by Saumya Brannon MD) Homelessness (Acute) Officially homeless as of 06/02/23 - connected to local supports 06/01/23 to assist in finding emergency housing. Status post primary low transverse section (Acute) Anemia affecting first (Acute) Elevated glucose level (Acute) ADHD (Acute) Medical History (Updated 06/02/23 @ 18:35 by Saumya Brannon MD) Positive urine drug screen cocaine on UDS at initial OB Depression Family History (Updated 11/16/22 @ 14:07 by Meghana Moore CNM) Mother Substance use disorder alcoholism Hypertension Father Substance use disorder alcohol Maternal Grandfather Diabetes Maternal Grandmother Thyroid disease Social History (Updated 11/29/22 @ 09:47 by Meghana Moore CNM) Smoking/Tobacco Use Status: Current-Occasional Tobacco Type: e-cigarettes Smoking risk assessment performed?: Yes Alcohol Intake: never Substance use type: crack/cocaine Details: pos. UDS for cocaine at 11 weeks gestation Housing: homeless Sexually active: Yes Do you think of yourself as: straight/heterosexual Current gender identity: female Do you feel safe at home: Yes Do you feel safe in your relationship?: Yes History History 2 Para 0 Hx # Term Pregnancies 0 Multiple births 0 Hx # Pregnancies 0 Ectopic pregnancies 0 AB induced 0 Hx Number of Living Children 0 AB spontaneous 1 Past Pregnancies Del. Date GA/Weeks # Preg Succ Route Wgt Sex Labor Lgth Anesthesia Location Prov Complic Unknown 12 No No DS: Data Vitals/I&O Vitals and I&O: Vital Signs Temperature 97.5 F L 06/03/23 08:45 Temperature Source Oral 06/03/23 08:45 Pulse 84 06/03/23 08:45 Pulse Rhythm Regular 06/03/23 08:45 Respiratory Rate 16 06/03/23 08:45 Respiratory Depth Normal 06/02/23 20:43 Blood Pressure 128/84 06/03/23 08:45 Blood Pressure Mean 98 06/03/23 08:45 Pulse Oximetry 100 06/03/23 08:45 Oxygen Delivery Method Room Air 05/31/23 06:34 Oxygen Flow Rate 0 05/31/23 06:34 Pain Level 3 06/03/23 08:45 Intake & Output 06/02/23 06/02/23 06/03/23 11:59 23:59 11:59 Other: Urine Color Yellow Yellow
[2023-06-03] MEDS: Acetaminophen 325 MG TAB 650 MG PO (11:59)
== END 2023-06-03 14:58 | disposition home or self-care (01) | DRG 787 ==
PROVIDERS: Admitting Provider Obstetrics & Gynecology; Visit Provider Obstetrics & Gynecology
PROC: 10D00Z1 Extraction of Products of Conception, Low, Open Approach (ICD-10-PCS; CPT 59514; principal; 2023-05-31 07:30)
DX: O32.1XX0 Maternal care for breech presentation, not applicable or unspecified (principal); O36.0930 Maternal care for other rhesus isoimmunization, third trimester, not applicable or unspecified; Z59.812 Housing instability, housed, homelessness in past 12 months; Z37.0 Single live birth; Z3A.39 39 weeks gestation of pregnancy; O43.893 Other placental disorders, third trimester
CPT/HCPCS: 59514; 36415; 85027; 86850; 86900; 86901; 85025; 88307; J0131; J0330; J0456; J0665; J0690; J1100; J1885; J2274; J2371; J2405; J2704